=== PATIENT | female | born 1975 | race American Indian/Alaskan Native ===

== ENCOUNTER 2016-10-14 11:26 | Inpatient (IN) | payer MEDICAID ==
[2016-10-14 12:22] VITALS: BMI 15.1
[2016-10-14] MEDS: Artificial Tears Opht Soln OU SCH (23:07)
[2016-10-15] MEDS: Artificial Tears Opht Soln OU SCH ×3 (05:40→17:24)
[2016-10-15] MEDS ORDERED: Lactulose 10 gm/15 ml (Rectal Use) PR SCH (09:00)
--- NOTE | 2016-10-15 21:28 | CP.PCM.PN ---
Subjective - Date & Time of Evaluation Date of Evaluation: 10/15/16 Time of Evaluation: 12:00 - Subjective Subjective: patient with no acute complaints at present Objective - Vital Signs/Intake and Output Vital Signs (last 24 hours): Temp Pulse Resp BP Pulse Ox 97.7 F 81 20 92/49 L 100 10/15/16 20:00 10/15/16 20:00 10/15/16 20:00 10/15/16 20:00 10/15/16 20:00 - Medications Medications: Current Medications Acetaminophen (Tylenol 325mg Tab) 650 mg PO Q4H PRN PRN Reason: for pain scale 5-10 Acetazolamide (Diamox 250 Mg Tab) 250 mg PO DAILY [facility] Last Admin: 10/15/16 09:16 Dose: 250 mg Amlodipine Besylate (Norvasc) 10 mg PO DAILY [facility] Artificial Tears (Artificial Tears) 1 drop OU Q6 PRN PRN Reason: Dry eyes Aspirin (Aspirin Chewable) 81 mg PO DAILY [facility] Last Admin: 10/15/16 09:15 Dose: 81 mg Atorvastatin Calcium (Lipitor) 40 mg PO HS [facility] Last Admin: 10/14/16 21:39 Dose: 40 mg Folic Acid (Folic Acid) 1 mg PO DAILY [facility] Last Admin: 10/15/16 09:16 Dose: 1 mg Lactulose (Enulose) 10 gm PO DAILY PRN PRN Reason: Constipation Lisinopril (Zestril) 5 mg PO DAILY [facility] Metoprolol Tartrate (Lopressor) 25 mg PO Q12 [facility] Sennosides (Senokot Tab) 8.6 mg PO DAILY [facility] Last Admin: 10/15/16 09:16 Dose: Not Given Thiamine HCl (Vitamin B1 Tab) 100 mg PO DAILY [facility] Last Admin: 10/15/16 09:17 Dose: 100 mg - Head Exam Head Exam: NORMAL INSPECTION, NORMOCEPHALIC Additional comments: status post hydrocephalus , EVD placement - Eye Exam Eye Exam: EOMI, Normal appearance Pupil Exam: NORMAL ACCOMODATION, PERRL - ENT Exam ENT Exam: Mucous Membranes Moist - Neck Exam Neck Exam: Normal Inspection - Respiratory Exam Respiratory Exam: Clear to Ausculation Bilateral, NORMAL BREATHING PATTERN - Cardiovascular Exam Cardiovascular Exam: REGULAR RHYTHM - Rectal Exam Rectal Exam: NORMAL INSPECTION - Exam Speculum exam: NORMAL SPECULUM EXAM - Extremities Exam Extremities Exam: Normal Capillary Refill, Normal Inspection - Back Exam Back Exam: NORMAL INSPECTION - Neurological Exam Neuro motor strength exam: Left Upper Extremity: 3, Right Upper Extremity: 4, Left Lower Extremity: 3, Right Lower Extremity: 4 - Psychiatric Exam Psychiatric exam: Normal Affect, Normal Mood Assessment and Plan (1) Brain mass Status: Acute (2) Hydrocephalus Status: Acute (3) Gait abnormality Status: Acute (4) CVA (cerebral vascular accident) Status: Acute - Assessment and Plan (Free Text) Assessment: plan for physical, occupational a, therapy and rec and speech therapy program covering for Dr Lowery Physiatry Overall Plan of Care - Overall Plan of Care Estimated Length of Stay in Weeks: 3 Rehab Impairment: Mobility, Gait, Cognition, Balance, Coordination Etiologic Diagnosis: Cerebrovascular Accident, Other Rehab/Medical Prognosis: Fair - Anticipated Interventions Occupational Therapy:: Yes Speech Therapy:: Yes Recreational Therapy:: Yes Other Anticipated Intervention:: Yes - Therapy Goals Bed Mobility: Independent Ambulation: Supervision Functional Positional Changes:: Independent - Discharge Plan Identification of Barriers to Discharge: Home Situation Discharge Destination: Home
--- NOTE | 2016-10-15 21:39 | CP.PCM.CON ---
History of Present Illness - History of Present Illness History of Present Illness: patient is a young 41 year old black female admitted for acute rehab. 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 - HEMATOLOGICAL/ONCOLOGICAL Hx AIDS: No Hx Human Immunodeficiency Virus (HIV): No - MUSCULOSKELETAL/RHEUMATOLOGICAL Hx Falls: Yes () - PSYCHIATRIC Hx Substance Use: No - ANESTHESIA Hx Anesthesia: Yes Hx Anesthesia Reactions: No Has any member of the family had a problem w/ anesthesia?: No Meds Allergies/Adverse Reactions: Allergies Allergy/AdvReac Type Severity Reaction Status Date / Time No Known Allergies Allergy Verified 10/14/16 12:17 - Medications Medications: Current Medications Acetaminophen (Tylenol 325mg Tab) 650 mg PO Q4H PRN PRN Reason: for pain scale 5-10 Acetazolamide (Diamox 250 Mg Tab) 250 mg PO DAILY [facility] Last Admin: 10/15/16 09:16 Dose: 250 mg Amlodipine Besylate (Norvasc) 10 mg PO DAILY [facility] Artificial Tears (Artificial Tears) 1 drop OU Q6 PRN PRN Reason: Dry eyes Aspirin (Aspirin Chewable) 81 mg PO DAILY [facility] Last Admin: 10/15/16 09:15 Dose: 81 mg Atorvastatin Calcium (Lipitor) 40 mg PO HS [facility] Last Admin: 10/14/16 21:39 Dose: 40 mg Folic Acid (Folic Acid) 1 mg PO DAILY [facility] Last Admin: 10/15/16 09:16 Dose: 1 mg Lactulose (Enulose) 10 gm PO DAILY PRN PRN Reason: Constipation Lisinopril (Zestril) 5 mg PO DAILY [facility] Metoprolol Tartrate (Lopressor) 25 mg PO Q12 [facility] Sennosides (Senokot Tab) 8.6 mg PO DAILY [facility] Last Admin: 10/15/16 09:16 Dose: Not Given Thiamine HCl (Vitamin B1 Tab) 100 mg PO DAILY [facility] Last Admin: 10/15/16 09:17 Dose: 100 mg Physical Exam - Head Exam Head Exam: ATRAUMATIC, NORMAL INSPECTION, NORMOCEPHALIC Additional comments: status post EVD placement - Eye Exam Eye Exam: EOMI, Normal appearance - ENT Exam ENT Exam: Mucous Membranes Moist, Normal Exam - Neck Exam Neck exam: Positive for: Normal Inspection - Respiratory Exam Respiratory Exam: Clear to Auscultation Bilateral, NORMAL BREATHING PATTERN - Cardiovascular Exam Cardiovascular Exam: REGULAR RHYTHM - GI/Abdominal Exam GI & Abdominal Exam: Normal Bowel Sounds - Rectal Exam Rectal Exam: NORMAL INSPECTION - Exam External exam: NORMAL EXTERNAL EXAM - Neurological Exam Neurological exam: Alert Additional comments: left side is weaker than right side - Psychiatric Exam Psychiatric exam: Normal Affect - Skin Skin Exam: Dry, Normal Color Results - Vital Signs Recent Vital Signs: Last Vital Signs Temp 97.7 F 10/15/16 20:00 Pulse 81 10/15/16 20:00 Resp 20 10/15/16 20:00 BP 92/49 L 10/15/16 20:00 Pulse Ox 100 10/15/16 20:00 Assessment & Plan (1) Brain mass Assessment and Plan: plan for physical, occupational , speech and rec therapy Goals for supervision at present TO write overall plan of care Monitor Vitals, labs and skin , Dr Lowery to return on sunday medical treatment as per PMD Status: Acute (2) Hydrocephalus Status: Acute (3) Gait abnormality Status: Acute (4) CVA (cerebral vascular accident) Status: Acute
--- NOTE | 2016-10-15 23:43 | CP.PCM.HP ---
History of Present Illness - History of Present Illness History of Present Illness: CC: Acute Rehab for Acute CVA, and S/P Brain Surgery History of present Illness: A 41yoF who had EVD, and Posterior Fossa Cystic mass removal after Obstructive Hydrocephalus which was complicated with Visual changes prior and after the procedure, and Acute Right PICA territory Infarction with Left Hemiparesis. Transferred here for Acute CVA. On and Off [facility]. Denies any fever/Nausea or Vomiting. Unsteady Ataxic gait witnessed by the RN. Present on Admission - Present on Admission Any Indicators Present on Admission: No Review of Systems - Review of Systems All systems: reviewed and no additional remarkable complaints except Past Patient History - Past Medical History & Family History Past Medical History?: Yes - Past Social History Smoking Status: Current Some Days Smoker Alcohol: None Drugs: Denies - NEUROLOGICAL HX Cerebrovascular Accident: Yes Other/Comment: obstructive hydrocephalus. 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 - HEMATOLOGICAL/ONCOLOGICAL Hx AIDS: No Hx Human Immunodeficiency Virus (HIV): No - MUSCULOSKELETAL/RHEUMATOLOGICAL Hx Falls: Yes () - PSYCHIATRIC Hx Substance Use: No - ANESTHESIA Hx Anesthesia: Yes Hx Anesthesia Reactions: No Has any member of the family had a problem w/ anesthesia?: No Meds Allergies/Adverse Reactions: Allergies Allergy/AdvReac Type Severity Reaction Status Date / Time No Known Allergies Allergy Verified 10/14/16 12:17 Physical Exam - Constitutional Appears: Well, In Acute Distress - Head Exam Head Exam: ATRAUMATIC Additional comments: +Healing Surgical scar with no sign of infection. - Eye Exam Eye Exam: EOMI, Normal appearance, PERRL Pupil Exam: NORMAL ACCOMODATION, PERRL - ENT Exam ENT Exam: Mucous Membranes Moist, Normal Exam - Neck Exam Neck exam: Positive for: Normal Inspection - Respiratory Exam Respiratory Exam: Clear to Auscultation Bilateral, NORMAL BREATHING PATTERN - Cardiovascular Exam Cardiovascular Exam: REGULAR RHYTHM, +S1, +S2 - GI/Abdominal Exam GI & Abdominal Exam: Normal Bowel Sounds, Soft. absent: Tenderness - Rectal Exam Rectal Exam: NORMAL INSPECTION - Exam Exam: Circumcision, NORMAL INSPECTION External exam: NORMAL EXTERNAL EXAM Speculum exam: NORMAL SPECULUM EXAM Bimanual exam: NORMAL BIMANUAL EXAM - Extremities Exam Extremities exam: Positive for: normal inspection - Back Exam Back exam: NORMAL INSPECTION - Neurological Exam Neurological exam: Alert, CN II-XII Intact, Normal Gait, Oriented x3, Reflexes Normal - Psychiatric Exam Psychiatric exam: Normal Affect, Normal Mood - Skin Skin Exam: Dry, Intact, Normal Color, Warm Results - Vital Signs Recent Vital Signs: Last Vital Signs Temp 97.7 F 10/15/16 20:00 Pulse 87 10/15/16 21:38 Resp 20 10/15/16 20:00 BP 91/48 L 10/15/16 21:38 Pulse Ox 100 10/15/16 20:00 - Labs Result Diagrams: 10/16/16 06:00 10/16/16 06:00 Assessment & Plan (1) Brain mass Assessment and Plan: Obstructing Hydrocephalus S/P EVD and Mass resection Visual Change Continue Wound Care PT/OT Status: Acute (2) CVA (cerebral vascular accident) Assessment and Plan: Left Hemiparesis Continue ASA/Atorvastatin Status: Acute (3) Gait abnormality Assessment and Plan: Continue PT/OT Status: Acute (4) Hydrocephalus Assessment and Plan: S/P EVD, and Mass Resection Continue PT/OT Status: Acute
[2016-10-16 06:45] LABS: BASO % 0.4 % (0.0-2.0); EOS # 0.1 K/uL (0.0-0.7); EOS % 1.6 % (0.0-4.0); HEMOGLOBIN 10.7 g/dL (12.0-16.0); LYMPH # 2.1 K/uL (1.0-4.3); LYMPH % 32.2 % (20.0-40.0); MEAN CELL VOLUME 91.4 fl (81.0-99.0); MEAN CORPUSCULAR HEMOGLOBIN 29.9 pg (27.0-31.0); MEAN CORPUSCULAR HGB CONC 32.7 g/dL (33.0-37.0); MEAN PLATELET VOLUME 7.8 fl (7.2-11.7); MONO # 0.4 K/uL (0.0-0.8); MONO % 6.5 % (0.0-10.0); NEUT # 3.8 K/uL (1.8-7.0); NEUT % 59.3 % (50.0-75.0); RBC 3.59 Mil/uL (3.80-5.20); RED CELL DISTRIBUTION WIDTH 13.9 % (11.5-14.5); WHITE BLOOD COUNT 6.4 K/uL (4.8-10.8)
[2016-10-16 06:54] LABS: ALBUMIN 3.5 g/dL (3.5-5.0); ALT/SGPT 36 U/L (9-52); AST/SGOT 30 U/L (14-36); BLOOD UREA NITROGEN 14 mg/dl (7-17); CALCIUM 9.6 mg/dL (8.4-10.2); GFR AFRICAN-AMERICAN > 60; GFR NON-AFRICAN AMERICAN > 60
[2016-10-16 07:04] LABS: PARTIAL THROMBOPLASTIN TIME 27.9 Seconds (25.6-37.1)
--- NOTE | 2016-10-16 08:43 | CT ---
PROCEDURE: CT HEAD WITHOUT CONTRAST. HISTORY: Severe headache COMPARISON: None available. TECHNIQUE: Axial computed tomography images were obtained through the head/brain without intravenous contrast. Radiation dose: Total exam DLP = 865 mGy-cm. This CT exam was performed using one or more of the following dose reduction techniques: Automated exposure control, adjustment of the mA and/or kV according to patient size, and/or use of iterative reconstruction technique. FINDINGS: HEMORRHAGE: No definite acute intracranial hemorrhage identified. BRAIN: The patient is status post right frontal fernando hole as well as bilateral suboccipital craniotomy. Postoperative change identified in both the fernando hole and craniotomy sites with fluid and trace gas identified in the region of the vermis and a bit of fluid is also seen with local edema at the medial right cerebellum. There is minimal edema identified at the left cerebellar peduncle and medial left cerebellum as well. Trace fluid is seen the acceptable scalp posteriorly as well as gas. Limited cerebellar edema is seen exerting mass effect at the posterior margins of the brainstem minimally with the brainstem unremarkable in density throughout. The 4th ventricle appears effaced however there is only borderline hydrocephalus. Lucency is seen within the right frontal lobe aligned with the right frontal fernando hole which is presumed postoperative. VENTRICLES: Borderline hydrocephalus. Effacement of the 4th ventricle. CALVARIUM: As discussed above. PARANASAL SINUSES: Unremarkable as visualized. No significant inflammatory changes. MASTOID AIR CELLS: Unremarkable as visualized. No inflammatory changes. OTHER FINDINGS: None. IMPRESSION: 1. Status post bilateral suboccipital craniotomy with postoperative change identified at the medial bilateral cerebellar hemispheres including the vermis. Trace residual pneumocephaly is identified. No acute intracranial hemorrhage is identified this time. Presumed postoperative mass effect effaces the 4th ventricle with borderline hydrocephalus identified. No prior comparison available. Continued clinical and cross-sectional imaging follow-up is advised. 2. Prior right frontal fernando hole with postop change right frontal lobe. Concur with V rad preliminary report by Dr. Sundeep Samson.
--- NOTE | 2016-10-16 16:34 | CP.PCM.PN ---
Subjective - Date & Time of Evaluation Date of Evaluation: 10/16/16 Time of Evaluation: 16:30 - Subjective Subjective: Seen and examined at the bed side. Fell trying to come out of her bed. Denies hitting her head. Denies Nausea or vomiting. Objective - Vital Signs/Intake and Output Vital Signs (last 24 hours): Temp Pulse Resp BP Pulse Ox 98.6 F 119 H 20 130/80 100 10/16/16 07:41 10/16/16 11:14 10/16/16 07:41 10/16/16 11:14 10/16/16 07:41 - Medications Medications: Current Medications Acetaminophen (Tylenol 325mg Tab) 650 mg PO Q4H PRN PRN Reason: for pain scale 5-10 Last Admin: 10/16/16 15:23 Dose: 650 mg Acetazolamide (Diamox 250 Mg Tab) 250 mg PO DAILY [facility] Last Admin: 10/16/16 08:29 Dose: 250 mg Amlodipine Besylate (Norvasc) 10 mg PO DAILY [facility] Last Admin: 10/16/16 08:30 Dose: Not Given Artificial Tears (Artificial Tears) 1 drop OU Q6 PRN PRN Reason: Dry eyes Aspirin (Aspirin Chewable) 81 mg PO DAILY [facility] Last Admin: 10/16/16 08:29 Dose: 81 mg Atorvastatin Calcium (Lipitor) 40 mg PO HS [facility] Last Admin: 10/15/16 21:38 Dose: 40 mg Folic Acid (Folic Acid) 1 mg PO DAILY [facility] Last Admin: 10/16/16 08:30 Dose: 1 mg Lactulose (Enulose) 10 gm PO DAILY PRN PRN Reason: Constipation Lisinopril (Zestril) 5 mg PO DAILY [facility] Last Admin: 10/16/16 08:31 Dose: Not Given Metoprolol Tartrate (Lopressor) 25 mg PO Q12 [facility] Last Admin: 10/16/16 11:14 Dose: 25 mg Sennosides (Senokot Tab) 8.6 mg PO DAILY [facility] Last Admin: 10/16/16 08:30 Dose: Not Given Thiamine HCl (Vitamin B1 Tab) 100 mg PO DAILY [facility] Last Admin: 10/16/16 08:30 Dose: 100 mg - Labs Labs: 10/16/16 06:00 10/16/16 06:00 PT 12.0 Seconds (9.8-13.1) 10/16/16 06:00 INR 1.0 (0.9-1.2) 10/16/16 06:00 APTT 27.9 Seconds (25.6-37.1) 10/16/16 06:00 - Constitutional Appears: No Acute Distress - Head Exam Additional comments: Surgical site clean. - Eye Exam Eye Exam: Normal appearance, PERRL Pupil Exam: NORMAL ACCOMODATION, PERRL - ENT Exam ENT Exam: Mucous Membranes Moist, Normal Exam - Neck Exam Neck Exam: Full ROM, Normal Inspection. absent: Lymphadenopathy - Respiratory Exam Respiratory Exam: Clear to Ausculation Bilateral, NORMAL BREATHING PATTERN. absent: Rales, Wheezes - Cardiovascular Exam Cardiovascular Exam: REGULAR RHYTHM, +S1, +S2. absent: Murmur - GI/Abdominal Exam GI & Abdominal Exam: Soft, Normal Bowel Sounds. absent: Tenderness - Extremities Exam Extremities Exam: Full ROM, Normal Capillary Refill, Normal Inspection. absent : Joint Swelling, Pedal Edema - Back Exam Back Exam: NORMAL INSPECTION - Neurological Exam Neurological Exam: Alert, Awake, CN II-XII Intact, Normal Gait, Oriented x3 Neuro motor strength exam: Left Upper Extremity: 4, Right Upper Extremity: 5, Left Lower Extremity: 4, Right Lower Extremity: 5 - Psychiatric Exam Psychiatric exam: Normal Affect, Normal Mood - Skin Skin Exam: Dry, Intact, Normal Color, Warm - Additional Findings Additional findings: CT Head W/O Contrast (02/15/2017): IMPRESSION: 1. Status post bilateral suboccipital craniotomy with postoperative change identified at the medial bilateral cerebellar hemispheres including the vermis. Trace residual pneumocephaly is identified. No acute intracranial hemorrhage is identified this time. Presumed postoperative mass effect effaces the 4th ventricle with borderline hydrocephalus identified. No prior comparison available. Continued clinical and cross-sectional imaging follow-up is advised. 2. Prior right frontal fernando hole with postop change right frontal lobe. Assessment and Plan (1) Brain mass Assessment & Plan: Obstructing Hydrocephalus S/P EVD and Mass resection Visual Change Continue Wound Care PT/OT Status: Acute (2) CVA (cerebral vascular accident) Assessment and Plan: Left Hemiparesis Continue ASA/Atorvastatin Status: Acute (3) Gait abnormality Assessment and Plan: Continue PT/OT Status: Acute (4) Hydrocephalus, S/P EVD, and Mass Resection Continue PT/OT (5) Fall Precaution two Bed Alarms Status: Acute
--- NOTE | 2016-10-16 17:07 | CP.PCM.PN ---
Subjective - Date & Time of Evaluation Date of Evaluation: 10/16/16 Time of Evaluation: 17:06 - Subjective Subjective: patient seen in the room had obstructive hydrocephalus, posterior fossa mass s/p craniotomy and shunt placement has visual disturbances and left sided weakness could not test visual solis as she couldn't focus long enough to do that mild left HP full AROM Objective - Vital Signs/Intake and Output Vital Signs (last 24 hours): Temp Pulse Resp BP Pulse Ox 98.6 F 119 H 20 130/80 100 10/16/16 07:41 10/16/16 11:14 10/16/16 07:41 10/16/16 11:14 10/16/16 07:41 - Medications Medications: Current Medications Acetaminophen (Tylenol 325mg Tab) 650 mg PO Q4H PRN PRN Reason: for pain scale 5-10 Last Admin: 10/16/16 15:23 Dose: 650 mg Acetazolamide (Diamox 250 Mg Tab) 250 mg PO DAILY [facility] Last Admin: 10/16/16 08:29 Dose: 250 mg Amlodipine Besylate (Norvasc) 10 mg PO DAILY [facility] Last Admin: 10/16/16 08:30 Dose: Not Given Artificial Tears (Artificial Tears) 1 drop OU Q6 PRN PRN Reason: Dry eyes Aspirin (Aspirin Chewable) 81 mg PO DAILY [facility] Last Admin: 10/16/16 08:29 Dose: 81 mg Atorvastatin Calcium (Lipitor) 40 mg PO HS [facility] Last Admin: 10/15/16 21:38 Dose: 40 mg Folic Acid (Folic Acid) 1 mg PO DAILY [facility] Last Admin: 10/16/16 08:30 Dose: 1 mg Lactulose (Enulose) 10 gm PO DAILY PRN PRN Reason: Constipation Lisinopril (Zestril) 5 mg PO DAILY [facility] Last Admin: 10/16/16 08:31 Dose: Not Given Metoprolol Tartrate (Lopressor) 25 mg PO Q12 [facility] Last Admin: 10/16/16 11:14 Dose: 25 mg Sennosides (Senokot Tab) 8.6 mg PO DAILY [facility] Last Admin: 10/16/16 08:30 Dose: Not Given Thiamine HCl (Vitamin B1 Tab) 100 mg PO DAILY [facility] Last Admin: 10/16/16 08:30 Dose: 100 mg - Labs Labs: 10/16/16 06:00 10/16/16 06:00 PT 12.0 Seconds (9.8-13.1) 10/16/16 06:00 INR 1.0 (0.9-1.2) 10/16/16 06:00 APTT 27.9 Seconds (25.6-37.1) 10/16/16 06:00
[2016-10-17] MEDS: Artificial Tears Opht Soln OU PRN (08:28)
--- NOTE | 2016-10-17 13:12 | PSY.TMCNF ---
Nursing - Vital Signs Vital Signs (Last 8 hours): Vital Signs 10/17/16 10/17/16 10/17/16 08:28 08:29 09:00 Temperature 98.4 F Pulse Rate 89 89 89 Respiratory 18 Rate Blood Pressure 99/58 L 99/58 L 99/58 L O2 Sat by Pulse Oximetry 10/17/16 10:00 Temperature 98.1 F Pulse Rate 88 Respiratory 20 Rate Blood Pressure 99/58 L O2 Sat by Pulse 100 Oximetry Pain: 0 - Precautions: Precautions: Fall Prevention - Medications/Other Issues Comment: Safety, pain management - Consults Comment: Dr. oLwery - Skin Incision Site: Frontal and posterior head Dressing Status: Clean, Dry, Intact Incision: Sutures Intact, Open Incision Line Treatment: [employer] [facility] - Toileting Toileting: Moderate Assistance - Bladder Management Bladder Pattern: Normal Voiding Method: Toilet Bladder Management: Moderate Assistance - Bowel Management Bowel Pattern: Normal Bowel Management: Moderate Assistance - Transfers Transfers: Contact Guard - ADL's ADL's: Contact Guard - Pain Management Comments: Tylenol 650mg po Q4hr prn - Patient/Family Teaching Comments: Safety. Fall preaution - Goals/Time Frame Comments: As per IPOC Physical Therapy - Bed Mobility Bed Mobility: Supervision, Verbal Cues - Transfers Wheelchair to Mat: Verbal Cues, Minimal Assistance Sit to Stand: Supervision, Verbal Cues, Contact Guard, Minimal Assistance Comment: RW - Ambulation Level of Assistance: Minimal Assistance, Moderate Assistance Distance (ft.): 15 Assistive Devices: Rolling Walker Orthoses: n/a Comment: -deferred on Sunday10/16/16 due to low BP and reports of dizziness. - assessed on 10/14 on evaluation. -min/mod A with RW, ataxic gait with impaired L sided strength and coordination - Stair Negotiation Stairs: Level of Assistance: Not Tested - Standing Balance Static Stand: Contact Guard Assist Dynamic Stand: Minimal Assistance, Moderate Assistance - Pain Management Techniques: Medication - Insight/Carryover Insight/Carryover: Fair - Patient/Family Education Comment: safety, balance, ADls and functional mobility, POC, therapy schedule, therapy goals, use of call rodríguez, safety - Assessment/Plan Assessment: Pt is a 41 year old female who was admitted with posterior fossa cyst, underwent extraction. Pt with decline in independence with ADLs, IADLs, and functional mobility secondary to impaired balance, LUE strength, coordination, visual changes and impaired cognitive functioning. Recommend continued OT services to maximize independence with ADLs and functional mobility - Goals Timeframe: 2 weeks Goals: MOD I ADLs. MOD I ADL transfers. MOD I IADLs - Provider License Number: [id number] Occupational Therapy - Arousal/Attention/Orientation Level of Consciousness: Awake Patient Orientation: Person, Place, Time, Appropriate to Age, Appropriate to Situation - ADL/IADL Self Feeding: Set-up Help Grooming: Supervision, Verbal Cues, Set-up Help Dressing-Upper Extremity: Supervision, Verbal Cues, Set-up Help Dressing-Lower Extremity: Minimal Assistance - Sitting Balance Static Sitting: Supervision Dynamic Sitting: Contact Guard Assist - Transfers Wheelchair to Bed Transfers: Minimal Assistance Toilet Transfers: Minimal Assistance - Pain Alleviating Techniques: Medication - Insight/Carryover Insight/Carryover: Fair - Patient/Family Education Comment: safety, balance, ADls and functional mobility, POC, therapy schedule, therapy goals, use of call rodríguez, safety - Assessment/Plan Assessment: Pt is a 41 year old female who was admitted with posterior fossa cyst, underwent extraction. Pt with decline in independence with ADLs, IADLs, and functional mobility secondary to impaired balance, LUE strength, coordination, visual changes and impaired cognitive functioning. Recommend continued OT services to maximize independence with ADLs and functional mobility - Goals Timeframe: 2 weeks Goals: MOD I ADLs. MOD I ADL transfers. MOD I IADLs - Provider Therapist: Awilda Covington License Number: [id number] Speech Therapy - Consult Information Patient on Program: Yes Medical Diagnosis: obstructive hydrocephalus, CVA Treatment Diagnosis: cognitive deficits - Assessment Problem Solving Impairment: Mild Memory Impairment: Mild - Plan Assessment: Pt is a 41 year old female who was admitted with posterior fossa cyst, underwent extraction. Pt with decline in independence with ADLs, IADLs, and functional mobility secondary to impaired balance, LUE strength, coordination, visual changes and impaired cognitive functioning. Recommend continued OT services to maximize independence with ADLs and functional mobility - Provider Therapist: Mary Ludwig License Number: [id number] Recreational Therapy - Participation Participation: Monitors His/Her Own Leisure Time - Attendance Attendance: 3-5 times per week - Activities Leisure Activities: Reading - Socialization Level of Socialization: Initiates/interacts with caregivers but not with peer - Assessment Assessment/Plan: Pt is a 41 year old female who was admitted with posterior fossa cyst, underwent extraction. Pt with decline in independence with ADLs, IADLs, and functional mobility secondary to impaired balance, LUE strength, coordination, visual changes and impaired cognitive functioning. Recommend continued OT services to maximize independence with ADLs and functional mobility - Provider Therapist: Malathi Alva, [employer] #[id number] Nutrition - Current Diet Current Diet/ Supplement/ Feedings: 2 gram Na low fat/low cholesterol - Appetite Percent Meal Consumed: 50-74% - Comments Comments: Safety. Fall preaution - Assessment/Goals/Time Frame Assessment/Goals/Time Frame: Safety, pain management - Provider Provider: Fabi Márquez RD Case Management - Discharge Plan Discharge Plan: Home with significant other/family Rehabilitation Plan - Treatment Plan Treatment Plan: Physical Therapy, Occupational Therapy, Speech, Dietary, Wound Care, Patient/Family Education - Discharge Plan Estimated Date of Discharge: 11/01/16 Discharge to: Home
--- NOTE | 2016-10-17 13:44 | CP.PCM.PN ---
Subjective - Date & Time of Evaluation Date of Evaluation: 10/17/16 Time of Evaluation: 13:44 - Subjective Subjective: Patient seen in room more comfortable today denies pain discussed importance for safety as she got OOB yesterday and had a near fall she understood continue current care Objective - Vital Signs/Intake and Output Vital Signs (last 24 hours): Temp Pulse Resp BP Pulse Ox 98.1 F 88 20 99/58 L 100 10/17/16 10:00 10/17/16 10:00 10/17/16 10:00 10/17/16 10:00 10/17/16 10:00 - Medications Medications: Current Medications Acetaminophen (Tylenol 325mg Tab) 650 mg PO Q4H PRN PRN Reason: for pain scale 5-10 Last Admin: 10/17/16 08:26 Dose: 650 mg Acetazolamide (Diamox 250 Mg Tab) 250 mg PO DAILY [facility] Last Admin: 10/17/16 08:28 Dose: 250 mg Amlodipine Besylate (Norvasc) 10 mg PO DAILY [facility] Last Admin: 10/17/16 08:29 Dose: Not Given Artificial Tears (Artificial Tears) 1 drop OU Q6 PRN PRN Reason: Dry eyes Last Admin: 10/17/16 08:28 Dose: 1 drop Aspirin (Aspirin Chewable) 81 mg PO DAILY [facility] Last Admin: 10/17/16 08:28 Dose: 81 mg Atorvastatin Calcium (Lipitor) 40 mg PO HS [facility] Last Admin: 10/16/16 21:09 Dose: 40 mg Folic Acid (Folic Acid) 1 mg PO DAILY [facility] Last Admin: 10/17/16 08:28 Dose: 1 mg Lactulose (Enulose) 10 gm PO DAILY PRN PRN Reason: Constipation Lisinopril (Zestril) 5 mg PO DAILY [facility] Last Admin: 10/17/16 08:29 Dose: Not Given Metoprolol Tartrate (Lopressor) 25 mg PO Q12 [facility] Last Admin: 10/17/16 08:28 Dose: Not Given Sennosides (Senokot Tab) 8.6 mg PO DAILY [facility] Last Admin: 10/17/16 08:29 Dose: Not Given Thiamine HCl (Vitamin B1 Tab) 100 mg PO DAILY [facility] Last Admin: 10/17/16 08:29 Dose: 100 mg - Labs Labs: 10/16/16 06:00 10/16/16 06:00 PT 12.0 Seconds (9.8-13.1) 10/16/16 06:00 INR 1.0 (0.9-1.2) 10/16/16 06:00 APTT 27.9 Seconds (25.6-37.1) 10/16/16 06:00
--- NOTE | 2016-10-17 17:33 | CP.PCM.PN ---
Subjective - Date & Time of Evaluation Date of Evaluation: 10/17/16 Time of Evaluation: 17:05 - Subjective Subjective: Seen and examined at the bed side. No complaint today Objective - Vital Signs/Intake and Output Vital Signs (last 24 hours): Temp Pulse Resp BP Pulse Ox 98.1 F 101 H 20 120/77 100 10/17/16 10:00 10/17/16 14:53 10/17/16 10:00 10/17/16 14:10 10/17/16 10:00 - Medications Medications: Current Medications Acetaminophen (Tylenol 325mg Tab) 650 mg PO Q4H PRN PRN Reason: for pain scale 5-10 Last Admin: 10/17/16 08:26 Dose: 650 mg Acetazolamide (Diamox 250 Mg Tab) 250 mg PO DAILY [facility] Last Admin: 10/17/16 08:28 Dose: 250 mg Amlodipine Besylate (Norvasc) 10 mg PO DAILY [facility] Last Admin: 10/17/16 08:29 Dose: Not Given Artificial Tears (Artificial Tears) 1 drop OU Q6 PRN PRN Reason: Dry eyes Last Admin: 10/17/16 08:28 Dose: 1 drop Aspirin (Aspirin Chewable) 81 mg PO DAILY [facility] Last Admin: 10/17/16 08:28 Dose: 81 mg Atorvastatin Calcium (Lipitor) 40 mg PO HS [facility] Last Admin: 10/16/16 21:09 Dose: 40 mg Folic Acid (Folic Acid) 1 mg PO DAILY [facility] Last Admin: 10/17/16 08:28 Dose: 1 mg Lactulose (Enulose) 10 gm PO DAILY PRN PRN Reason: Constipation Lisinopril (Zestril) 5 mg PO DAILY [facility] Last Admin: 10/17/16 08:29 Dose: Not Given Metoprolol Tartrate (Lopressor) 25 mg PO Q12 [facility] Last Admin: 10/17/16 08:28 Dose: Not Given Sennosides (Senokot Tab) 8.6 mg PO DAILY [facility] Last Admin: 10/17/16 08:29 Dose: Not Given Thiamine HCl (Vitamin B1 Tab) 100 mg PO DAILY [facility] Last Admin: 10/17/16 08:29 Dose: 100 mg - Labs Labs: 10/16/16 06:00 10/16/16 06:00 PT 12.0 Seconds (9.8-13.1) 10/16/16 06:00 INR 1.0 (0.9-1.2) 10/16/16 06:00 APTT 27.9 Seconds (25.6-37.1) 10/16/16 06:00 - Constitutional Appears: Well, No Acute Distress - Head Exam Additional comments: Surgical wound care healing well. - Eye Exam Eye Exam: EOMI, Normal appearance, PERRL Pupil Exam: NORMAL ACCOMODATION, PERRL - ENT Exam ENT Exam: Mucous Membranes Moist, Normal Exam - Neck Exam Neck Exam: Full ROM, Normal Inspection. absent: Lymphadenopathy - Respiratory Exam Respiratory Exam: Clear to Ausculation Bilateral, NORMAL BREATHING PATTERN - Cardiovascular Exam Cardiovascular Exam: REGULAR RHYTHM, +S1, +S2. absent: Murmur - GI/Abdominal Exam GI & Abdominal Exam: Soft, Normal Bowel Sounds. absent: Tenderness - Extremities Exam Extremities Exam: Full ROM, Normal Capillary Refill, Normal Inspection. absent : Joint Swelling, Pedal Edema - Back Exam Back Exam: NORMAL INSPECTION - Neurological Exam Neurological Exam: Abnormal Gait, Awake, Motor Sensory Deficit, Oriented x3 Neuro motor strength exam: Left Upper Extremity: 4, Right Upper Extremity: 5, Left Lower Extremity: 3, Right Lower Extremity: 5 - Psychiatric Exam Psychiatric exam: Normal Affect, Normal Mood - Skin Skin Exam: Dry, Intact, Normal Color, Warm Assessment and Plan (1) Brain mass Assessment & Plan: Obstructing Hydrocephalus S/P EVD and Mass resection Visual Change Continue Wound Care PT/OT Status: Acute (2) CVA (cerebral vascular accident) Assessment and Plan: Left Hemiparesis Continue ASA/Atorvastatin Status: Acute (3) Gait abnormality Assessment and Plan: Continue PT/OT Status: Acute (4) Hydrocephalus, S/P EVD, and Mass Resection Continue PT/OT (5) Fall Two Bed Alarms Fall Precaution Status: Acute
--- NOTE | 2016-10-18 11:24 | CP.PCM.PN ---
Subjective - Date & Time of Evaluation Date of Evaluation: 10/18/16 Time of Evaluation: 11:23 - Subjective Subjective: Patient seen in room feeling good and appreciating therapies blurry vision regardless of which eye is covered continue current care Objective - Vital Signs/Intake and Output Vital Signs (last 24 hours): Temp Pulse Resp BP Pulse Ox 97.9 F 96 H 18 105/68 100 10/18/16 10:00 10/18/16 08:39 10/18/16 10:00 10/18/16 08:39 10/18/16 10:00 - Medications Medications: Current Medications Acetaminophen (Tylenol 325mg Tab) 650 mg PO Q4H PRN PRN Reason: for pain scale 5-10 Last Admin: 10/17/16 17:36 Dose: 650 mg Acetazolamide (Diamox 250 Mg Tab) 250 mg PO DAILY [facility] Last Admin: 10/18/16 08:36 Dose: 250 mg Amlodipine Besylate (Norvasc) 10 mg PO DAILY [facility] Last Admin: 10/18/16 08:38 Dose: 10 mg Artificial Tears (Artificial Tears) 1 drop OU Q6 PRN PRN Reason: Dry eyes Last Admin: 10/17/16 08:28 Dose: 1 drop Aspirin (Aspirin Chewable) 81 mg PO DAILY [facility] Last Admin: 10/18/16 08:35 Dose: 81 mg Atorvastatin Calcium (Lipitor) 40 mg PO HS [facility] Last Admin: 10/17/16 21:10 Dose: 40 mg Folic Acid (Folic Acid) 1 mg PO DAILY [facility] Last Admin: 10/18/16 08:36 Dose: 1 mg Lactulose (Enulose) 10 gm PO DAILY PRN PRN Reason: Constipation Lisinopril (Zestril) 5 mg PO DAILY [facility] Last Admin: 10/18/16 08:39 Dose: Not Given Metoprolol Tartrate (Lopressor) 25 mg PO Q12 [facility] Last Admin: 10/18/16 08:36 Dose: Not Given Sennosides (Senokot Tab) 8.6 mg PO DAILY [facility] Last Admin: 10/18/16 08:38 Dose: Not Given Thiamine HCl (Vitamin B1 Tab) 100 mg PO DAILY [facility] Last Admin: 10/18/16 08:37 Dose: 100 mg - Labs Labs: 10/16/16 06:00 10/16/16 06:00 PT 12.0 Seconds (9.8-13.1) 10/16/16 06:00 INR 1.0 (0.9-1.2) 10/16/16 06:00 APTT 27.9 Seconds (25.6-37.1) 10/16/16 06:00
[2016-10-18] MEDS: Artificial Tears Opht Soln OU PRN (21:09)
[2016-10-19] MEDS: Artificial Tears Opht Soln OU PRN ×2 (11:17→21:19)
--- NOTE | 2016-10-19 14:50 | CP.PCM.PN ---
Subjective - Date & Time of Evaluation Date of Evaluation: 10/19/16 Time of Evaluation: 14:49 - Subjective Subjective: Patient seen in room very happy with progress notes increased strength left UE still with some dizziness and blurred vision at times continue current care Objective - Vital Signs/Intake and Output Vital Signs (last 24 hours): Temp Pulse Resp BP Pulse Ox 96.4 F L 103 H 18 96/57 L 100 10/19/16 07:41 10/19/16 13:16 10/19/16 07:41 10/19/16 08:30 10/19/16 07:41 - Medications Medications: Current Medications Acetaminophen (Tylenol 325mg Tab) 650 mg PO Q4H PRN PRN Reason: for pain scale 5-10 Last Admin: 10/18/16 21:12 Dose: 650 mg Acetazolamide (Diamox 250 Mg Tab) 250 mg PO DAILY [facility] Last Admin: 10/19/16 08:32 Dose: 250 mg Amlodipine Besylate (Norvasc) 10 mg PO DAILY [facility] Last Admin: 10/19/16 08:30 Dose: Not Given Artificial Tears (Artificial Tears) 1 drop OU Q6 PRN PRN Reason: Dry eyes Last Admin: 10/19/16 11:17 Dose: 1 drop Aspirin (Aspirin Chewable) 81 mg PO DAILY [facility] Last Admin: 10/19/16 08:32 Dose: 81 mg Atorvastatin Calcium (Lipitor) 40 mg PO HS [facility] Last Admin: 10/18/16 21:09 Dose: 40 mg Folic Acid (Folic Acid) 1 mg PO DAILY [facility] Last Admin: 10/19/16 08:32 Dose: 1 mg Lactulose (Enulose) 10 gm PO DAILY PRN PRN Reason: Constipation Lisinopril (Zestril) 5 mg PO DAILY [facility] Last Admin: 10/19/16 08:30 Dose: Not Given Metoprolol Tartrate (Lopressor) 25 mg PO Q12 [facility] Last Admin: 10/19/16 08:30 Dose: Not Given Sennosides (Senokot Tab) 8.6 mg PO DAILY [facility] Last Admin: 10/19/16 08:34 Dose: Not Given Thiamine HCl (Vitamin B1 Tab) 100 mg PO DAILY [facility] Last Admin: 10/19/16 08:32 Dose: 100 mg - Labs Labs: 10/16/16 06:00 10/16/16 06:00 PT 12.0 Seconds (9.8-13.1) 10/16/16 06:00 INR 1.0 (0.9-1.2) 10/16/16 06:00 APTT 27.9 Seconds (25.6-37.1) 10/16/16 06:00
--- NOTE | 2016-10-19 23:34 | CP.PCM.PN ---
Subjective - Date & Time of Evaluation Date of Evaluation: 10/19/16 Time of Evaluation: 17:00 - Subjective Subjective: Seen and examined at the bed side. Still C/O Blurry vision but improving. Occasional LOPEZ. Objective - Vital Signs/Intake and Output Vital Signs (last 24 hours): Temp Pulse Resp BP Pulse Ox 96.8 F L 82 19 100/60 99 10/19/16 20:02 10/19/16 20:15 10/19/16 20:02 10/19/16 20:15 10/19/16 20:02 - Medications Medications: Current Medications Acetaminophen (Tylenol 325mg Tab) 650 mg PO Q4H PRN PRN Reason: for pain scale 5-10 Last Admin: 10/19/16 21:18 Dose: 650 mg Acetazolamide (Diamox 250 Mg Tab) 250 mg PO DAILY [facility] Last Admin: 10/19/16 08:32 Dose: 250 mg Amlodipine Besylate (Norvasc) 10 mg PO DAILY [facility] Last Admin: 10/19/16 08:30 Dose: Not Given Artificial Tears (Artificial Tears) 1 drop OU Q6 PRN PRN Reason: Dry eyes Last Admin: 10/19/16 21:19 Dose: 1 drop Aspirin (Aspirin Chewable) 81 mg PO DAILY [facility] Last Admin: 10/19/16 08:32 Dose: 81 mg Atorvastatin Calcium (Lipitor) 40 mg PO HS [facility] Last Admin: 10/19/16 21:19 Dose: 40 mg Folic Acid (Folic Acid) 1 mg PO DAILY [facility] Last Admin: 10/19/16 08:32 Dose: 1 mg Lactulose (Enulose) 10 gm PO DAILY PRN PRN Reason: Constipation Lisinopril (Zestril) 5 mg PO DAILY [facility] Last Admin: 10/19/16 08:30 Dose: Not Given Metoprolol Tartrate (Lopressor) 25 mg PO Q12 [facility] Last Admin: 10/19/16 20:15 Dose: Not Given Sennosides (Senokot Tab) 8.6 mg PO DAILY [facility] Last Admin: 10/19/16 08:34 Dose: Not Given Thiamine HCl (Vitamin B1 Tab) 100 mg PO DAILY [facility] Last Admin: 10/19/16 08:32 Dose: 100 mg - Labs Labs: 10/16/16 06:00 10/16/16 06:00 PT 12.0 Seconds (9.8-13.1) 10/16/16 06:00 INR 1.0 (0.9-1.2) 10/16/16 06:00 APTT 27.9 Seconds (25.6-37.1) 10/16/16 06:00 - Constitutional Appears: Well, No Acute Distress - Head Exam Additional comments: +Scalp Surgical Scar healed. - Eye Exam Eye Exam: Normal appearance, PERRL Pupil Exam: NORMAL ACCOMODATION, PERRL - ENT Exam ENT Exam: Mucous Membranes Moist, Normal Exam - Neck Exam Neck Exam: Full ROM, Normal Inspection. absent: Lymphadenopathy - Respiratory Exam Respiratory Exam: Clear to Ausculation Bilateral, NORMAL BREATHING PATTERN - Cardiovascular Exam Cardiovascular Exam: REGULAR RHYTHM, +S1, +S2. absent: Murmur - GI/Abdominal Exam GI & Abdominal Exam: Soft, Normal Bowel Sounds. absent: Tenderness - Extremities Exam Extremities Exam: Full ROM, Normal Capillary Refill, Normal Inspection. absent : Joint Swelling, Pedal Edema - Back Exam Back Exam: NORMAL INSPECTION - Neurological Exam Neurological Exam: Alert, Awake, CN II-XII Intact, Normal Gait, Oriented x3 Neuro motor strength exam: Left Upper Extremity: 4, Right Upper Extremity: 5, Left Lower Extremity: 4, Right Lower Extremity: 5 - Psychiatric Exam Psychiatric exam: Normal Affect, Normal Mood - Skin Skin Exam: Dry, Intact, Normal Color, Warm Assessment and Plan (1) Brain mass Assessment & Plan: Obstructing Hydrocephalus S/P EVD and Mass resection- Resolved Visual Change- Improving Wound -Healed Status: Acute (2) CVA (cerebral vascular accident) Assessment and Plan: Left Hemiparesis Continue ASA/Atorvastatin Continue Rehab Status: Acute (3) Gait abnormality Assessment and Plan: Continue PT/OT Status: Acute (4) Hydrocephalus, S/P EVD, and Mass Resection Continue PT/OT (5) Fall Two Bed Alarms Fall Precaution Status: Acute
--- NOTE | 2016-10-20 08:03 | CP.PCM.CON ---
History of Present Illness - History of Present Illness History of Present Illness: Pt is a 41 year old female admitted to [facility] (formerly [facility]) and referred to the insurance underwriter for evaluation. Med history postive for "Cyst in my brain" crainiotomy. Social History: pt lives with her mother in a senior building. She also has one son age 5. Pt reported positive relationships with family members. Pt never . 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 She is currently not working. Pt reported a history of alcohol abuse up until one year ago when her son turned 4. She denied drug abuse. Pt spoke of her current medical issues, frustration and dysphoria, she reported decline in negative thinking and ideation. Asking less "Why estrella." MSE: pt alert, oriented, relevant/coherent, no psychosis, affect constricted, mood irritable/dysphoric, strategies reviewed to reduce distress/depression. no si no hi ideation. Dx: Adjustment Dx plan: Continued Sup therapy Past Patient History - Past Medical History & Family History Past Medical History?: Yes - Past Social History Smoking Status: Current Some Days Smoker Alcohol: None Drugs: Denies - NEUROLOGICAL HX Cerebrovascular Accident: Yes Other/Comment: obstructive hydrocephalus. 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 - HEMATOLOGICAL/ONCOLOGICAL Hx AIDS: No Hx Human Immunodeficiency Virus (HIV): No - MUSCULOSKELETAL/RHEUMATOLOGICAL Hx Falls: Yes () - PSYCHIATRIC Hx Substance Use: No - ANESTHESIA Hx Anesthesia: Yes Hx Anesthesia Reactions: No Has any member of the family had a problem w/ anesthesia?: No Meds Allergies/Adverse Reactions: Allergies Allergy/AdvReac Type Severity Reaction Status Date / Time No Known Allergies Allergy Verified 10/14/16 12:17 - Medications Medications: Current Medications Acetaminophen (Tylenol 325mg Tab) 650 mg PO Q4H PRN PRN Reason: for pain scale 5-10 Last Admin: 10/20/16 06:11 Dose: 650 mg Acetazolamide (Diamox 250 Mg Tab) 250 mg PO DAILY [facility] Last Admin: 10/19/16 08:32 Dose: 250 mg Amlodipine Besylate (Norvasc) 10 mg PO DAILY [facility] Last Admin: 10/19/16 08:30 Dose: Not Given Artificial Tears (Artificial Tears) 1 drop OU Q6 PRN PRN Reason: Dry eyes Last Admin: 10/19/16 21:19 Dose: 1 drop Aspirin (Aspirin Chewable) 81 mg PO DAILY [facility] Last Admin: 10/19/16 08:32 Dose: 81 mg Atorvastatin Calcium (Lipitor) 40 mg PO HS [facility] Last Admin: 10/19/16 21:19 Dose: 40 mg Folic Acid (Folic Acid) 1 mg PO DAILY [facility] Last Admin: 10/19/16 08:32 Dose: 1 mg Lactulose (Enulose) 10 gm PO DAILY PRN PRN Reason: Constipation Lisinopril (Zestril) 5 mg PO DAILY [facility] Last Admin: 10/19/16 08:30 Dose: Not Given Metoprolol Tartrate (Lopressor) 25 mg PO Q12 [facility] Last Admin: 10/19/16 20:15 Dose: Not Given Sennosides (Senokot Tab) 8.6 mg PO DAILY [facility] Last Admin: 10/19/16 08:34 Dose: Not Given Thiamine HCl (Vitamin B1 Tab) 100 mg PO DAILY [facility] Last Admin: 10/19/16 08:32 Dose: 100 mg Results - Vital Signs Recent Vital Signs: Last Vital Signs Temp 98.4 F 10/20/16 07:32 Pulse 86 10/20/16 07:32 Resp 20 10/20/16 07:32 BP 106/61 10/20/16 07:32 Pulse Ox 100 10/20/16 07:32 - Labs Result Diagrams: 10/16/16 06:00 10/16/16 06:00
--- NOTE | 2016-10-20 11:45 | CP.PCM.PN ---
Subjective - Date & Time of Evaluation Date of Evaluation: 10/20/16 Time of Evaluation: 11:30 - Subjective Subjective: Seen and examined at the bed side. Sates feeling better. +blurry vision. Objective - Vital Signs/Intake and Output Vital Signs (last 24 hours): Temp Pulse Resp BP Pulse Ox 98.4 F 86 20 106/61 100 10/20/16 07:32 10/20/16 08:09 10/20/16 07:32 10/20/16 08:09 10/20/16 07:32 - Medications Medications: Current Medications Acetaminophen (Tylenol 325mg Tab) 650 mg PO Q4H PRN PRN Reason: for pain scale 5-10 Last Admin: 10/20/16 06:11 Dose: 650 mg Acetazolamide (Diamox 250 Mg Tab) 250 mg PO DAILY [facility] Last Admin: 10/20/16 08:11 Dose: 250 mg Amlodipine Besylate (Norvasc) 10 mg PO DAILY [facility] Last Admin: 10/20/16 08:09 Dose: Not Given Artificial Tears (Artificial Tears) 1 drop OU Q6 PRN PRN Reason: Dry eyes Last Admin: 10/19/16 21:19 Dose: 1 drop Aspirin (Aspirin Chewable) 81 mg PO DAILY [facility] Last Admin: 10/20/16 08:11 Dose: 81 mg Atorvastatin Calcium (Lipitor) 40 mg PO HS [facility] Last Admin: 10/19/16 21:19 Dose: 40 mg Folic Acid (Folic Acid) 1 mg PO DAILY [facility] Last Admin: 10/20/16 08:11 Dose: 1 mg Lactulose (Enulose) 10 gm PO DAILY PRN PRN Reason: Constipation Lisinopril (Zestril) 5 mg PO DAILY [facility] Last Admin: 10/20/16 08:09 Dose: Not Given Metoprolol Tartrate (Lopressor) 25 mg PO Q12 [facility] Last Admin: 10/20/16 08:09 Dose: Not Given Sennosides (Senokot Tab) 8.6 mg PO DAILY [facility] Last Admin: 10/20/16 08:11 Dose: Not Given Thiamine HCl (Vitamin B1 Tab) 100 mg PO DAILY [facility] Last Admin: 10/20/16 08:11 Dose: 100 mg - Labs Labs: 10/16/16 06:00 10/16/16 06:00 PT 12.0 Seconds (9.8-13.1) 10/16/16 06:00 INR 1.0 (0.9-1.2) 10/16/16 06:00 APTT 27.9 Seconds (25.6-37.1) 10/16/16 06:00 - Constitutional Appears: Well, No Acute Distress - Head Exam Head Exam: ATRAUMATIC, NORMAL INSPECTION, NORMOCEPHALIC - Eye Exam Eye Exam: Normal appearance, PERRL Pupil Exam: NORMAL ACCOMODATION, PERRL Additional comments: Decreased Visual Acuity. - ENT Exam ENT Exam: Mucous Membranes Moist, Normal Exam - Neck Exam Neck Exam: Full ROM, Normal Inspection. absent: Lymphadenopathy - Respiratory Exam Respiratory Exam: Clear to Ausculation Bilateral, NORMAL BREATHING PATTERN - Cardiovascular Exam Cardiovascular Exam: REGULAR RHYTHM, +S1, +S2. absent: Murmur - GI/Abdominal Exam GI & Abdominal Exam: Soft, Normal Bowel Sounds. absent: Tenderness - Extremities Exam Extremities Exam: Full ROM, Normal Capillary Refill, Normal Inspection. absent : Joint Swelling, Pedal Edema - Back Exam Back Exam: NORMAL INSPECTION. absent: CVA tenderness (L), CVA tenderness (R) - Neurological Exam Neurological Exam: Abnormal Gait, Normal Gait Neuro motor strength exam: Left Upper Extremity: 5, Left Lower Extremity: 4, Right Lower Extremity: 5 - Psychiatric Exam Psychiatric exam: Normal Affect, Normal Mood - Skin Skin Exam: Dry, Intact, Normal Color, Warm Assessment and Plan (1) Brain mass Assessment & Plan: Obstructing Hydrocephalus S/P EVD and Mass resection- Resolved Visual Change- Improving Wound -Healed Status: Acute (2) CVA (cerebral vascular accident) Assessment and Plan: Left Hemiparesis Continue ASA/Atorvastatin Continue Rehab Status: Acute (3) Gait abnormality Assessment and Plan: Improving Continue PT/OT Status: Acute (4) Hydrocephalus, S/P EVD, and Mass Resection Continue PT/OT (5) Fall Two Bed Alarms Fall Precaution Status: Acute
--- NOTE | 2016-10-20 16:05 | CP.PCM.PN ---
Subjective - Date & Time of Evaluation Date of Evaluation: 10/20/16 Time of Evaluation: 16:03 - Subjective Subjective: Patient seen in room +nystagmus some blurring of vision tracking better though ambulating 100' no pain continue current care Objective - Vital Signs/Intake and Output Vital Signs (last 24 hours): Temp Pulse Resp BP Pulse Ox 98.4 F 86 20 106/61 100 10/20/16 07:32 10/20/16 08:09 10/20/16 07:32 10/20/16 08:09 10/20/16 07:32 - Medications Medications: Current Medications Acetaminophen (Tylenol 325mg Tab) 650 mg PO Q4H PRN PRN Reason: for pain scale 5-10 Last Admin: 10/20/16 06:11 Dose: 650 mg Acetazolamide (Diamox 250 Mg Tab) 250 mg PO DAILY [facility] Last Admin: 10/20/16 08:11 Dose: 250 mg Amlodipine Besylate (Norvasc) 10 mg PO DAILY [facility] Last Admin: 10/20/16 08:09 Dose: Not Given Artificial Tears (Artificial Tears) 1 drop OU Q6 PRN PRN Reason: Dry eyes Last Admin: 10/19/16 21:19 Dose: 1 drop Aspirin (Aspirin Chewable) 81 mg PO DAILY [facility] Last Admin: 10/20/16 08:11 Dose: 81 mg Atorvastatin Calcium (Lipitor) 40 mg PO HS [facility] Last Admin: 10/19/16 21:19 Dose: 40 mg Folic Acid (Folic Acid) 1 mg PO DAILY [facility] Last Admin: 10/20/16 08:11 Dose: 1 mg Lactulose (Enulose) 10 gm PO DAILY PRN PRN Reason: Constipation Lisinopril (Zestril) 5 mg PO DAILY [facility] Last Admin: 10/20/16 08:09 Dose: Not Given Metoprolol Tartrate (Lopressor) 25 mg PO Q12 [facility] Last Admin: 10/20/16 08:09 Dose: Not Given Sennosides (Senokot Tab) 8.6 mg PO DAILY [facility] Last Admin: 10/20/16 08:11 Dose: Not Given Thiamine HCl (Vitamin B1 Tab) 100 mg PO DAILY [facility] Last Admin: 10/20/16 08:11 Dose: 100 mg - Labs Labs: 10/16/16 06:00 10/16/16 06:00 PT 12.0 Seconds (9.8-13.1) 10/16/16 06:00 INR 1.0 (0.9-1.2) 10/16/16 06:00 APTT 27.9 Seconds (25.6-37.1) 10/16/16 06:00
[2016-10-20] MEDS: Artificial Tears Opht Soln OU PRN (19:31)
[2016-10-21] MEDS: Artificial Tears Opht Soln OU PRN (08:21)
--- NOTE | 2016-10-21 23:44 | CP.PCM.PN ---
Subjective - Date & Time of Evaluation Date of Evaluation: 10/21/16 Time of Evaluation: 23:50 - Subjective Subjective: No Complaint. Objective - Vital Signs/Intake and Output Vital Signs (last 24 hours): Temp Pulse Resp BP Pulse Ox 98.1 F 76 20 102/64 99 10/21/16 20:44 10/21/16 20:44 10/21/16 20:44 10/21/16 20:44 10/21/16 20:44 - Medications Medications: Current Medications Acetaminophen (Tylenol 325mg Tab) 650 mg PO Q4H PRN PRN Reason: for pain scale 5-10 Last Admin: 10/21/16 15:49 Dose: 650 mg Acetazolamide (Diamox 250 Mg Tab) 250 mg PO DAILY [facility] Last Admin: 10/21/16 08:21 Dose: 250 mg Amlodipine Besylate (Norvasc) 5 mg PO DAILY PRN PRN Reason: SBP ABOVE 140 OR DBP ABOVE 90. Artificial Tears (Artificial Tears) 1 drop OU Q6 PRN PRN Reason: Dry eyes Last Admin: 10/21/16 08:21 Dose: 1 drop Aspirin (Aspirin Chewable) 81 mg PO DAILY [facility] Last Admin: 10/21/16 08:21 Dose: 81 mg Atorvastatin Calcium (Lipitor) 40 mg PO HS [facility] Last Admin: 10/21/16 21:06 Dose: 40 mg Folic Acid (Folic Acid) 1 mg PO DAILY [facility] Last Admin: 10/21/16 08:21 Dose: 1 mg Lactulose (Enulose) 10 gm PO DAILY PRN PRN Reason: Constipation Sennosides (Senokot Tab) 8.6 mg PO DAILY [facility] Last Admin: 10/21/16 08:21 Dose: Not Given Thiamine HCl (Vitamin B1 Tab) 100 mg PO DAILY [facility] Last Admin: 10/21/16 08:21 Dose: 100 mg - Labs Labs: 10/16/16 06:00 10/16/16 06:00 PT 12.0 Seconds (9.8-13.1) 10/16/16 06:00 INR 1.0 (0.9-1.2) 10/16/16 06:00 APTT 27.9 Seconds (25.6-37.1) 10/16/16 06:00 Assessment and Plan (1) Brain mass Assessment & Plan: Obstructing Hydrocephalus S/P EVD and Mass resection- Resolved Visual Change- Improving Wound -Healed Status: Acute (2) CVA (cerebral vascular accident) Assessment and Plan: Left Hemiparesis Continue ASA/Atorvastatin Continue Rehab Status: Acute (3) Gait abnormality Assessment and Plan: Improving Continue PT/OT Status: Acute (4) Hydrocephalus, S/P EVD, and Mass Resection Continue PT/OT (5) Fall Two Bed Alarms Fall Precaution Status: Chronic
[2016-10-22] MEDS: Lactulose 10 gm/15 ml Syrup PO PRN (21:11)
--- NOTE | 2016-10-22 23:53 | CP.PCM.PN ---
Subjective - Date & Time of Evaluation Date of Evaluation: 10/22/16 Time of Evaluation: 19:45 - Subjective Subjective: She states feel better. Objective - Vital Signs/Intake and Output Vital Signs (last 24 hours): Temp Pulse Resp BP Pulse Ox 98.2 F 80 20 99/53 L 99 10/22/16 19:58 10/22/16 19:58 10/22/16 19:58 10/22/16 19:58 10/22/16 19:58 - Medications Medications: Current Medications Acetaminophen (Tylenol 325mg Tab) 650 mg PO Q4H PRN PRN Reason: for pain scale 5-10 Last Admin: 10/22/16 21:13 Dose: 650 mg Acetazolamide (Diamox 250 Mg Tab) 250 mg PO DAILY [facility] Last Admin: 10/22/16 08:39 Dose: 250 mg Amlodipine Besylate (Norvasc) 5 mg PO DAILY PRN PRN Reason: SBP ABOVE 140 OR DBP ABOVE 90. Artificial Tears (Artificial Tears) 1 drop OU Q6 PRN PRN Reason: Dry eyes Last Admin: 10/21/16 08:21 Dose: 1 drop Aspirin (Aspirin Chewable) 81 mg PO DAILY [facility] Last Admin: 10/22/16 08:39 Dose: 81 mg Atorvastatin Calcium (Lipitor) 40 mg PO HS [facility] Last Admin: 10/22/16 21:09 Dose: 40 mg Folic Acid (Folic Acid) 1 mg PO DAILY [facility] Last Admin: 10/22/16 08:39 Dose: 1 mg Lactulose (Enulose) 10 gm PO DAILY PRN PRN Reason: Constipation Last Admin: 10/22/16 21:11 Dose: 10 gm Sennosides (Senokot Tab) 8.6 mg PO DAILY [facility] Last Admin: 10/22/16 08:38 Dose: Not Given Thiamine HCl (Vitamin B1 Tab) 100 mg PO DAILY [facility] Last Admin: 10/22/16 08:39 Dose: 100 mg - Labs Labs: 10/16/16 06:00 10/16/16 06:00 PT 12.0 Seconds (9.8-13.1) 10/16/16 06:00 INR 1.0 (0.9-1.2) 10/16/16 06:00 APTT 27.9 Seconds (25.6-37.1) 10/16/16 06:00 - Constitutional Appears: Well, No Acute Distress - Head Exam Head Exam: ATRAUMATIC, NORMAL INSPECTION, NORMOCEPHALIC - Eye Exam Eye Exam: EOMI, Normal appearance, PERRL Pupil Exam: NORMAL ACCOMODATION, PERRL - ENT Exam ENT Exam: Mucous Membranes Moist, Normal Exam - Neck Exam Neck Exam: Full ROM, Normal Inspection. absent: Lymphadenopathy - Respiratory Exam Respiratory Exam: Clear to Ausculation Bilateral, NORMAL BREATHING PATTERN - Cardiovascular Exam Cardiovascular Exam: REGULAR RHYTHM, +S1, +S2. absent: Murmur - GI/Abdominal Exam GI & Abdominal Exam: Soft, Normal Bowel Sounds. absent: Tenderness - Extremities Exam Extremities Exam: Full ROM, Normal Capillary Refill, Normal Inspection. absent : Joint Swelling, Pedal Edema - Back Exam Back Exam: Full ROM, NORMAL INSPECTION - Neurological Exam Neurological Exam: Alert, Awake, CN II-XII Intact, Normal Gait, Oriented x3 Neuro motor strength exam: Left Upper Extremity: 4, Right Upper Extremity: 5, Left Lower Extremity: 4, Right Lower Extremity: 5 - Psychiatric Exam Psychiatric exam: Normal Affect, Normal Mood - Skin Skin Exam: Dry, Intact, Normal Color, Warm Assessment and Plan (1) Brain mass Assessment & Plan: Obstructing Hydrocephalus S/P EVD and Mass resection- Resolved Visual Change- Improving Wound -Healed Status: Acute (2) CVA (cerebral vascular accident) Assessment and Plan: Improving Left Hemiparesis Continue ASA/Atorvastatin Continue Rehab Status: Acute (3) Gait abnormality Assessment and Plan: Improving Continue PT/OT Status: Acute (4) Hydrocephalus, S/P EVD, and Mass Resection Continue PT/OT (5) Fall Two Bed Alarms Fall Precaution Status: Chronic
[2016-10-23] MEDS: Artificial Tears Opht Soln OU PRN ×2 (08:16→20:02)
[2016-10-23] MEDS: Lactulose 10 gm/15 ml Syrup PO PRN (21:05)
--- NOTE | 2016-10-23 23:56 | CP.PCM.PN ---
Subjective - Date & Time of Evaluation Date of Evaluation: 10/23/16 Time of Evaluation: 15:00 - Subjective Subjective: No complaint. Objective - Vital Signs/Intake and Output Vital Signs (last 24 hours): Temp Pulse Resp BP Pulse Ox 96.4 F L 82 20 101/62 100 10/23/16 20:06 10/23/16 20:06 10/23/16 20:06 10/23/16 20:06 10/23/16 20:06 - Medications Medications: Current Medications Acetaminophen (Tylenol 325mg Tab) 650 mg PO Q4H PRN PRN Reason: for pain scale 5-10 Last Admin: 10/23/16 21:04 Dose: 650 mg Acetazolamide (Diamox 250 Mg Tab) 250 mg PO DAILY [facility] Last Admin: 10/23/16 08:16 Dose: 250 mg Artificial Tears (Artificial Tears) 1 drop OU Q6 PRN PRN Reason: Dry eyes Last Admin: 10/23/16 20:02 Dose: 1 drop Aspirin (Aspirin Chewable) 81 mg PO DAILY [facility] Last Admin: 10/23/16 08:16 Dose: 81 mg Atorvastatin Calcium (Lipitor) 40 mg PO HS [facility] Last Admin: 10/23/16 21:05 Dose: 40 mg Folic Acid (Folic Acid) 1 mg PO DAILY [facility] Last Admin: 10/23/16 08:17 Dose: 1 mg Lactulose (Enulose) 10 gm PO DAILY PRN PRN Reason: Constipation Last Admin: 10/23/16 21:05 Dose: 10 gm Sennosides (Senokot Tab) 8.6 mg PO DAILY [facility] Last Admin: 10/23/16 08:17 Dose: 8.6 mg Thiamine HCl (Vitamin B1 Tab) 100 mg PO DAILY [facility] Last Admin: 10/23/16 08:17 Dose: 100 mg - Labs Labs: 10/16/16 06:00 10/16/16 06:00 PT 12.0 Seconds (9.8-13.1) 10/16/16 06:00 INR 1.0 (0.9-1.2) 10/16/16 06:00 APTT 27.9 Seconds (25.6-37.1) 10/16/16 06:00 Assessment and Plan (1) Brain mass Assessment & Plan: Obstructing Hydrocephalus S/P EVD and Mass resection- Resolved Visual Change- Improving Wound -Healed Status: Acute (2) CVA (cerebral vascular accident) Assessment and Plan: Left Hemiparesis Continue ASA/Atorvastatin Continue Rehab Status: Acute (3) Gait abnormality Assessment and Plan: Improving Continue PT/OT Status: Acute (4) Hydrocephalus, S/P EVD, and Mass Resection Continue PT/OT (5) Fall Two Bed Alarms Fall Precaution Status: Chronic
[2016-10-24] MEDS: Artificial Tears Opht Soln OU PRN (08:12)
--- NOTE | 2016-10-24 13:18 | PSY.TMCNF ---
Nursing - Vital Signs Vital Signs (Last 8 hours): Vital Signs 10/24/16 10/24/16 07:34 10:14 Temperature 98.4 F Pulse Rate 69 111 H Respiratory 18 Rate Blood Pressure 94/55 L O2 Sat by Pulse 100 Oximetry Pain: 2 - Precautions: Precautions: Fall Prevention, Seizure - Medications/Other Issues Comment: on aspirin daily - Consults Comment: consult with Neuro surgeon on at 10:30 am - Skin Incision Site: clean & dry Dressing Status: Clean, Dry, Intact Incision: Sutures Intact Incision Line Treatment: chlorhexidine elis - Toileting Toileting: Minimal Assistance - Bladder Management Bladder Pattern: Normal Voiding Method: Toilet Bladder Management: Minimal Assistance Frequency of Accidents: continent - Bowel Management Bowel Pattern: Constipated Comment: on bowel management Bowel Management: Moderate Assistance Frequency of Accidents: none - Transfers Transfers: Minimal Assistance - ADL's ADL's: Minimal Assistance - Pain Management Comments: on tylenol 650mg for LOPEZ, effective - Patient/Family Teaching Comments: safety measures - Goals/Time Frame Comments: to go home safely - Provider Provider: ERL[facility] - Bed Mobility Bed Mobility: Modified Independent - Transfers Wheelchair to Mat: Supervision, Verbal Cues, Contact Guard Sit to Stand: Supervision, Verbal Cues, Contact Guard Comment: RW - Ambulation Level of Assistance: Supervision, Verbal Cues, Contact Guard, Minimal Assistance Distance (ft.): 125 Assistive Devices: Rolling Walker Orthoses: intermittent use of LLE TAP splint Comment: trials of 125 feet with RW with fluctuating assistance. -initially with CG with some runs of CS; as patient fatigues, she requires up to min/mod A for mobility. -patient has 1 LOB on 2nd trial requiring mod A for balance and 1 LOB on 3rd trial requiring max A to maintain balance. -gait training with L sided Tap splint to improve control/coordination - Stair Negotiation Stairs: Level of Assistance: Verbal Cues, Contact Guard, Minimal Assistance, Moderate Assistance Stairs: Assistive Devices: Right Handrail Comment: 1 flight of 8 inch steps with BUE on R rail on both ascent/descent, step to pattern. -CG on ascent. -min/mod on descent; patient reports feeling nervous on descent and requires increased tactile cues at trunk for safety/ comfort. -x 1 trial - Standing Balance Static Stand: Supervision Dynamic Stand: Contact Guard Assist, Minimal Assistance - Pain Pain (assessed during therapy session): 3 Management Techniques: Medication Comment: intermittent reports of headache - Insight/Carryover Insight/Carryover: Good - Patient/Family Education Comment: Recovery process, role of OT/rehab, compensatory strategies, safety, and fall prevention - Assessment/Plan Assessment: Pt displays a flat affect, impaired dynamic balances, impaired LUE coordination and strength, and decreased endurance limiting pt's independence with ADLs and functional transfers - Goals Timeframe: 2 weeks Goals: MOD I toileting. MOD I toilet txfers. MOD I UE and LE dressing. MOD I bathing. MOD I tub txfers. I grooming. I feeding - Provider License Number: [id number] Occupational Therapy - Arousal/Attention/Orientation Level of Consciousness: Awake, Alert Patient Orientation: Person, Place, Time - ADL/IADL Self Feeding: Independent Grooming: Independent Bathing-Upper Extremity: Supervision, Verbal Cues, Set-up Help Bathing-Lower Extremity: Verbal Cues, Set-up Help, Minimal Assistance Dressing-Upper Extremity: Supervision, Verbal Cues, Set-up Help Dressing-Lower Extremity: Contact Guard - Sitting Balance Static Sitting: Independent with upper extremity support Dynamic Sitting: Contact Guard Assist - Transfers Wheelchair to Bed Transfers: Contact Guard Toilet Transfers: Contact Guard - Upper Extremity Status Right Upper Extremity Comment: ROM WFL 3+/5 Left Upper Extremity Comment: ROM WFL 3+/5 - Pain Pain (assessed during therapy session): 3 Alleviating Techniques: Medication Comment: intermittent reports of headache - Insight/Carryover Insight/Carryover: Good - Patient/Family Education Comment: Recovery process, role of OT/rehab, compensatory strategies, safety, and fall prevention - Assessment/Plan Assessment: Pt displays a flat affect, impaired dynamic balances, impaired LUE coordination and strength, and decreased endurance limiting pt's independence with ADLs and functional transfers - Goals Timeframe: 2 weeks Goals: MOD I toileting. MOD I toilet txfers. MOD I UE and LE dressing. MOD I bathing. MOD I tub txfers. I grooming. I feeding - Provider Therapist: Awilda [facility] - Consult Information Patient on Program: Yes Medical Diagnosis: brain mass Treatment Diagnosis: mild cognitive-linguistic deficits - Assessment Memory Impairment: Mild - Plan Assessment: Pt displays a flat affect, impaired dynamic balances, impaired LUE coordination and strength, and decreased endurance limiting pt's independence with ADLs and functional transfers - Provider Therapist: Mary Ludwig License Number: [id number] Recreational Therapy - Participation Participation: Participates in Individual and/or Group Sessions, Monitors His/ Her Own Leisure Time - Attendance Attendance: Daily - Activities Leisure Activities: Television - Socialization Level of Socialization: Initiates/interacts with caregivers but not with peer - Diversional Time Diversional Time: resting in bed, watching television - Assessment Assessment/Plan: Pt displays a flat affect, impaired dynamic balances, impaired LUE coordination and strength, and decreased endurance limiting pt's independence with ADLs and functional transfers - Provider Therapist: Malathi Alva, [employer] SUPERVISOR #[id number] Nutrition - Current Diet Current Diet/ Supplement/ Feedings: Regular diet ensure plus 8 ounces 2 per day - Appetite Percent Meal Consumed: 75-100% - Comments Comments: safety measures - Assessment/Goals/Time Frame Assessment/Goals/Time Frame: on aspirin daily - Provider Provider: Fabi Márquez RD Case Management - Psychosocial Assessment Support Systems: Lian Salas (mother)- [phone], Psychological Interventions/Needs: Patient is alert with intermittent confusion and flat affect. Patient noted with impulsivity. Discharge Concerns: Patient with mild impairments in cognition. Patient will likely require 24 hour supervision at home Patient/Family Meeting: CM met with patient and rehab team Intervention/Goal/Outcome:: 1. Plan: Home with 24 hour supervision. 2. caregiver training. 3. DME needs. 4. f/u appts. 5. continued stay auth, LAD: 10/20. 6. continued emotional support. 7. Tentative discharge date: 10/30/2016 - Discharge Plan Discharge Plan: Home with services Home Services: [facility] - Provider Provider: YAMILE Box, ME[employer] C[employer]TING TEACHER License Number: [id number] Rehabilitation Plan - Treatment Plan Treatment Plan: Physical Therapy, Occupational Therapy, Speech, Dietary, Patient /Family Education - Discharge Plan Estimated Date of Discharge: 10/30/16 Discharge to: Home
--- NOTE | 2016-10-24 16:16 | CP.PCM.PN ---
Subjective - Date & Time of Evaluation Date of Evaluation: 10/24/16 Time of Evaluation: 16:15 - Subjective Subjective: patient seen in the room doing well but has a loss of balance as a major issue which is stemming from her visual issues. She will be trained at a wheelchair level and training of the family will be done she denies pain and is otherwise stable and remains motivated and an excellent acute rehabilitation patient Objective - Vital Signs/Intake and Output Vital Signs (last 24 hours): Temp Pulse Resp BP Pulse Ox 98.4 F 111 H 18 94/55 L 100 10/24/16 07:34 10/24/16 10:14 10/24/16 07:34 10/24/16 07:34 10/24/16 07:34 - Medications Medications: Current Medications Acetaminophen (Tylenol 325mg Tab) 650 mg PO Q4H PRN PRN Reason: for pain scale 5-10 Last Admin: 10/24/16 10:32 Dose: 650 mg Acetazolamide (Diamox 250 Mg Tab) 250 mg PO DAILY [facility] Last Admin: 10/24/16 08:10 Dose: 250 mg Artificial Tears (Artificial Tears) 1 drop OU Q6 PRN PRN Reason: Dry eyes Last Admin: 10/24/16 08:12 Dose: 1 drop Aspirin (Aspirin Chewable) 81 mg PO DAILY [facility] Last Admin: 10/24/16 08:09 Dose: 81 mg Atorvastatin Calcium (Lipitor) 40 mg PO HS [facility] Last Admin: 10/23/16 21:05 Dose: 40 mg Folic Acid (Folic Acid) 1 mg PO DAILY [facility] Last Admin: 10/24/16 08:09 Dose: 1 mg Lactulose (Enulose) 10 gm PO DAILY PRN PRN Reason: Constipation Last Admin: 10/23/16 21:05 Dose: 10 gm Lactulose (Enulose) 20 gm PO DAILY PRN PRN Reason: Constipation Sennosides (Senokot Tab) 8.6 mg PO DAILY [facility] Last Admin: 10/24/16 08:09 Dose: 8.6 mg Thiamine HCl (Vitamin B1 Tab) 100 mg PO DAILY [facility] Last Admin: 10/24/16 08:09 Dose: 100 mg - Labs Labs: 10/16/16 06:00 10/16/16 06:00 PT 12.0 Seconds (9.8-13.1) 10/16/16 06:00 INR 1.0 (0.9-1.2) 10/16/16 06:00 APTT 27.9 Seconds (25.6-37.1) 10/16/16 06:00
--- NOTE | 2016-10-24 19:04 | CP.PCM.PN ---
Subjective - Date & Time of Evaluation Date of Evaluation: 10/24/16 Time of Evaluation: 19:00 Objective - Vital Signs/Intake and Output Vital Signs (last 24 hours): Temp Pulse Resp BP Pulse Ox 98.4 F 111 H 18 94/55 L 100 10/24/16 07:34 10/24/16 10:14 10/24/16 07:34 10/24/16 07:34 10/24/16 07:34 - Medications Medications: Current Medications Acetaminophen (Tylenol 325mg Tab) 650 mg PO Q4H PRN PRN Reason: for pain scale 5-10 Last Admin: 10/24/16 17:26 Dose: 650 mg Acetazolamide (Diamox 250 Mg Tab) 250 mg PO DAILY [facility] Last Admin: 10/24/16 08:10 Dose: 250 mg Artificial Tears (Artificial Tears) 1 drop OU Q6 PRN PRN Reason: Dry eyes Last Admin: 10/24/16 08:12 Dose: 1 drop Aspirin (Aspirin Chewable) 81 mg PO DAILY [facility] Last Admin: 10/24/16 08:09 Dose: 81 mg Atorvastatin Calcium (Lipitor) 40 mg PO HS [facility] Last Admin: 10/23/16 21:05 Dose: 40 mg Folic Acid (Folic Acid) 1 mg PO DAILY [facility] Last Admin: 10/24/16 08:09 Dose: 1 mg Lactulose (Enulose) 10 gm PO DAILY PRN PRN Reason: Constipation Last Admin: 10/23/16 21:05 Dose: 10 gm Sennosides (Senokot Tab) 8.6 mg PO DAILY [facility] Last Admin: 10/24/16 08:09 Dose: 8.6 mg Thiamine HCl (Vitamin B1 Tab) 100 mg PO DAILY [facility] Last Admin: 10/24/16 08:09 Dose: 100 mg - Labs Labs: 10/16/16 06:00 10/16/16 06:00 PT 12.0 Seconds (9.8-13.1) 10/16/16 06:00 INR 1.0 (0.9-1.2) 10/16/16 06:00 APTT 27.9 Seconds (25.6-37.1) 10/16/16 06:00 Assessment and Plan (1) Brain mass Status: Chronic
[2016-10-25] MEDS: Artificial Tears Opht Soln OU PRN (08:32)
--- NOTE | 2016-10-25 12:41 | CP.PCM.PN ---
Subjective - Date & Time of Evaluation Date of Evaluation: 10/25/16 Time of Evaluation: 12:40 - Subjective Subjective: patient seen in room had a good morning in therapy feels that she is getting more stable and worked on safety concerns continue current care Objective - Vital Signs/Intake and Output Vital Signs (last 24 hours): Temp Pulse Resp BP Pulse Ox 97.7 F 78 18 97/52 L 100 10/25/16 07:30 10/25/16 07:30 10/25/16 07:30 10/25/16 07:30 10/25/16 07:30 - Medications Medications: Current Medications Acetaminophen (Tylenol 325mg Tab) 650 mg PO Q4H PRN PRN Reason: for pain scale 5-10 Last Admin: 10/25/16 10:29 Dose: 650 mg Acetazolamide (Diamox 250 Mg Tab) 250 mg PO DAILY [facility] Last Admin: 10/25/16 08:32 Dose: 250 mg Artificial Tears (Artificial Tears) 1 drop OU Q6 PRN PRN Reason: Dry eyes Last Admin: 10/25/16 08:32 Dose: 1 drop Aspirin (Aspirin Chewable) 81 mg PO DAILY [facility] Last Admin: 10/25/16 08:32 Dose: 81 mg Atorvastatin Calcium (Lipitor) 40 mg PO HS [facility] Last Admin: 10/24/16 21:03 Dose: 40 mg Folic Acid (Folic Acid) 1 mg PO DAILY [facility] Last Admin: 10/25/16 08:32 Dose: 1 mg Lactulose (Enulose) 10 gm PO DAILY PRN PRN Reason: Constipation Last Admin: 10/23/16 21:05 Dose: 10 gm Sennosides (Senokot Tab) 8.6 mg PO DAILY [facility] Last Admin: 10/25/16 08:32 Dose: 8.6 mg Thiamine HCl (Vitamin B1 Tab) 100 mg PO DAILY [facility] Last Admin: 10/25/16 08:32 Dose: 100 mg - Labs Labs: 10/16/16 06:00 10/16/16 06:00 PT 12.0 Seconds (9.8-13.1) 10/16/16 06:00 INR 1.0 (0.9-1.2) 10/16/16 06:00 APTT 27.9 Seconds (25.6-37.1) 10/16/16 06:00
--- NOTE | 2016-10-25 23:39 | CP.PCM.PN ---
Subjective - Date & Time of Evaluation Date of Evaluation: 10/25/16 Time of Evaluation: 18:00 Objective - Vital Signs/Intake and Output Vital Signs (last 24 hours): Temp Pulse Resp BP Pulse Ox 97.9 F 76 20 99/62 L 100 10/25/16 19:46 10/25/16 19:46 10/25/16 19:46 10/25/16 19:46 10/25/16 19:46 - Medications Medications: Current Medications Acetaminophen (Tylenol 325mg Tab) 650 mg PO Q4H PRN PRN Reason: for pain scale 5-10 Last Admin: 10/25/16 17:28 Dose: 650 mg Acetazolamide (Diamox 250 Mg Tab) 250 mg PO DAILY [facility] Last Admin: 10/25/16 08:32 Dose: 250 mg Artificial Tears (Artificial Tears) 1 drop OU Q6 PRN PRN Reason: Dry eyes Last Admin: 10/25/16 08:32 Dose: 1 drop Aspirin (Aspirin Chewable) 81 mg PO DAILY [facility] Last Admin: 10/25/16 08:32 Dose: 81 mg Atorvastatin Calcium (Lipitor) 40 mg PO HS [facility] Last Admin: 10/25/16 21:06 Dose: 40 mg Folic Acid (Folic Acid) 1 mg PO DAILY [facility] Last Admin: 10/25/16 08:32 Dose: 1 mg Lactulose (Enulose) 10 gm PO DAILY PRN PRN Reason: Constipation Last Admin: 10/23/16 21:05 Dose: 10 gm Sennosides (Senokot Tab) 8.6 mg PO DAILY [facility] Last Admin: 10/25/16 08:32 Dose: 8.6 mg Thiamine HCl (Vitamin B1 Tab) 100 mg PO DAILY [facility] Last Admin: 10/25/16 08:32 Dose: 100 mg - Labs Labs: 10/16/16 06:00 10/16/16 06:00 PT 12.0 Seconds (9.8-13.1) 10/16/16 06:00 INR 1.0 (0.9-1.2) 10/16/16 06:00 APTT 27.9 Seconds (25.6-37.1) 10/16/16 06:00 Assessment and Plan (1) Brain mass Status: Chronic
[2016-10-26] MEDS ORDERED: Oxycodone/Acetaminophen 5/325 mg Tab PO STA (16:26)
--- NOTE | 2016-10-26 17:54 | CP.PCM.PN ---
Subjective - Date & Time of Evaluation Date of Evaluation: 10/26/16 Time of Evaluation: 17:52 - Subjective Subjective: Patient seen in room she has not been a complainer at all and now with severe headache, not as much dizziness, but real headache she couldn't keep her head up to eat I have ordered a neurology consult given concern of her history Objective - Vital Signs/Intake and Output Vital Signs (last 24 hours): Temp Pulse Resp BP Pulse Ox 98.2 F 75 22 112/70 99 10/26/16 08:18 10/26/16 08:18 10/26/16 08:18 10/26/16 08:18 10/26/16 08:18 - Medications Medications: Current Medications Acetaminophen (Tylenol 325mg Tab) 650 mg PO Q4H PRN PRN Reason: for pain scale 5-10 Last Admin: 10/26/16 14:33 Dose: 650 mg Acetazolamide (Diamox 250 Mg Tab) 250 mg PO DAILY [facility] Last Admin: 10/26/16 08:22 Dose: 250 mg Artificial Tears (Artificial Tears) 1 drop OU Q6 PRN PRN Reason: Dry eyes Last Admin: 10/25/16 08:32 Dose: 1 drop Aspirin (Aspirin Chewable) 81 mg PO DAILY [facility] Last Admin: 10/26/16 08:26 Dose: 81 mg Atorvastatin Calcium (Lipitor) 40 mg PO HS [facility] Last Admin: 10/25/16 21:06 Dose: 40 mg Folic Acid (Folic Acid) 1 mg PO DAILY [facility] Last Admin: 10/26/16 08:22 Dose: 1 mg Lactulose (Enulose) 10 gm PO DAILY PRN PRN Reason: Constipation Last Admin: 10/23/16 21:05 Dose: 10 gm Sennosides (Senokot Tab) 8.6 mg PO DAILY [facility] Last Admin: 10/26/16 08:22 Dose: 8.6 mg Thiamine HCl (Vitamin B1 Tab) 100 mg PO DAILY [facility] Last Admin: 10/26/16 08:22 Dose: 100 mg - Labs Labs: 10/16/16 06:00 10/16/16 06:00 PT 12.0 Seconds (9.8-13.1) 10/16/16 06:00 INR 1.0 (0.9-1.2) 10/16/16 06:00 APTT 27.9 Seconds (25.6-37.1) 10/16/16 06:00
[2016-10-26] MEDS ORDERED: Dexamethasone 10 MG in Sodium Chloride 0.9% 50 ML IV ONE (18:40)
--- NOTE | 2016-10-26 19:41 | CP.PCM.PN ---
Subjective - Date & Time of Evaluation Date of Evaluation: 10/26/16 Time of Evaluation: 19:00 Objective - Vital Signs/Intake and Output Vital Signs (last 24 hours): Temp Pulse Resp BP Pulse Ox 98.2 F 75 22 112/70 99 10/26/16 08:18 10/26/16 08:18 10/26/16 08:18 10/26/16 08:18 10/26/16 08:18 - Medications Medications: Current Medications Acetaminophen (Tylenol 325mg Tab) 650 mg PO Q4H PRN PRN Reason: for pain scale 5-10 Last Admin: 10/26/16 14:33 Dose: 650 mg Acetazolamide (Diamox 250 Mg Tab) 250 mg PO DAILY [facility] Last Admin: 10/26/16 08:22 Dose: 250 mg Artificial Tears (Artificial Tears) 1 drop OU Q6 PRN PRN Reason: Dry eyes Last Admin: 10/25/16 08:32 Dose: 1 drop Aspirin (Aspirin Chewable) 81 mg PO DAILY [facility] Last Admin: 10/26/16 08:26 Dose: 81 mg Atorvastatin Calcium (Lipitor) 40 mg PO HS [facility] Last Admin: 10/25/16 21:06 Dose: 40 mg Folic Acid (Folic Acid) 1 mg PO DAILY [facility] Last Admin: 10/26/16 08:22 Dose: 1 mg Lactulose (Enulose) 10 gm PO DAILY PRN PRN Reason: Constipation Last Admin: 10/23/16 21:05 Dose: 10 gm Sennosides (Senokot Tab) 8.6 mg PO DAILY [facility] Last Admin: 10/26/16 08:22 Dose: 8.6 mg Thiamine HCl (Vitamin B1 Tab) 100 mg PO DAILY [facility] Last Admin: 10/26/16 08:22 Dose: 100 mg - Labs Labs: 10/16/16 06:00 10/16/16 06:00 PT 12.0 Seconds (9.8-13.1) 10/16/16 06:00 INR 1.0 (0.9-1.2) 10/16/16 06:00 APTT 27.9 Seconds (25.6-37.1) 10/16/16 06:00 Assessment and Plan (1) Brain mass Status: Chronic
--- NOTE | 2016-10-26 20:17 | CT ---
EXAM: CT Head Without Intravenous Contrast CLINICAL HISTORY: 41 years old, female; Pain; Headache; Headache not specified; Prior surgery; Surgery date: <1 month; Surgery type: Brain surgery 10-04-2016; Patient HX: HX of CVA; Additional info: Severe headache TECHNIQUE: Axial computed tomography images of the head/brain without intravenous contrast. All CT scans at this facility use one or more dose reduction techniques, viz.: automated exposure control; ma/kV adjustment per patient size (including targeted exams where dose is matched to indication; i.e. head); or iterative reconstruction technique. Coronal and sagittal reformatted images were created and reviewed. EXAM DATE/TIME: 10/26/2016 7:15 PM COMPARISON: CT - HEAD W/O CONTRAST 10/15/2016 1:42:14 PM FINDINGS: Brain: There are postsurgical changes of suboccipital craniotomy. There is been slight interval decrease in size of lateral and third ventricles. The fourth ventricle has increased in size. There is residual mass effect and midline shift in the posterior fossa. There is been interval decrease in posterior fossa edema and air. There is a right frontal fernando hole. There has been interval decrease in right frontal lobe edema. No intra-axial or extra-axial hemorrhages are identified. Rodgers-white differentiation is visualized. Ventricles: See above. Bones/joints: See above Soft tissues: unremarkable Sinuses: There is no acute sinusitis. Middle ears and mastoids: Middle ears and mastoids are unremarkable. Orbits: Orbital contents are unremarkable. IMPRESSION: Suboccipital craniotomy with interval decrease in posterior fossa edema and emphysema; slight interval decrease in size of lateral and third ventricles with increased conspicuity of the fourth ventricle; decreasing right frontal lobe edema in the region of the fernando hole; no bleed
[2016-10-26] MEDS ORDERED: Valproate 500 MG in Sodium Chloride 0.9% 100 ML IVPB ONE (20:46)
--- NOTE | 2016-10-27 08:04 | CP.PCM.CON ---
History of Present Illness - History of Present Illness History of Present Illness: Pt seen for sup therapy. Pt spoke of anxiety regarding physical challenges. Anxiety management strategies introduced to reduce distress. Pt spoke of her current med issues, stressors and looking forward to her future. plan: Continued Sup therapy Past Patient History - Past Medical History & Family History Past Medical History?: Yes - Past Social History Smoking Status: Current Some Days Smoker Alcohol: None Drugs: Denies - NEUROLOGICAL HX Cerebrovascular Accident: Yes Other/Comment: obstructive hydrocephalus. 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 - HEMATOLOGICAL/ONCOLOGICAL Hx AIDS: No Hx Human Immunodeficiency Virus (HIV): No - MUSCULOSKELETAL/RHEUMATOLOGICAL Hx Falls: Yes () - PSYCHIATRIC Hx Substance Use: No - ANESTHESIA Hx Anesthesia: Yes Hx Anesthesia Reactions: No Has any member of the family had a problem w/ anesthesia?: No Meds Allergies/Adverse Reactions: Allergies Allergy/AdvReac Type Severity Reaction Status Date / Time No Known Allergies Allergy Verified 10/14/16 12:17 - Medications Medications: Current Medications Acetaminophen (Tylenol 325mg Tab) 650 mg PO Q4H PRN PRN Reason: for pain scale 5-10 Last Admin: 10/26/16 14:33 Dose: 650 mg Acetazolamide (Diamox 250 Mg Tab) 250 mg PO DAILY [facility] Last Admin: 10/26/16 08:22 Dose: 250 mg Artificial Tears (Artificial Tears) 1 drop OU Q6 PRN PRN Reason: Dry eyes Last Admin: 10/25/16 08:32 Dose: 1 drop Aspirin (Aspirin Chewable) 81 mg PO DAILY [facility] Last Admin: 10/26/16 08:26 Dose: 81 mg Atorvastatin Calcium (Lipitor) 40 mg PO HS [facility] Last Admin: 10/26/16 21:18 Dose: 40 mg Folic Acid (Folic Acid) 1 mg PO DAILY [facility] Last Admin: 10/26/16 08:22 Dose: 1 mg Lactulose (Enulose) 10 gm PO DAILY PRN PRN Reason: Constipation Last Admin: 10/23/16 21:05 Dose: 10 gm Sennosides (Senokot Tab) 8.6 mg PO DAILY [facility] Last Admin: 10/26/16 08:22 Dose: 8.6 mg Thiamine HCl (Vitamin B1 Tab) 100 mg PO DAILY [facility] Last Admin: 10/26/16 08:22 Dose: 100 mg Results - Vital Signs Recent Vital Signs: Last Vital Signs Temp 98.1 F 10/27/16 08:00 Pulse 76 10/27/16 08:00 Resp 18 10/27/16 08:00 BP 117/66 10/27/16 08:00 Pulse Ox 99 10/27/16 08:00 - Labs Result Diagrams: 10/16/16 06:00 10/16/16 06:00
--- NOTE | 2016-10-27 12:19 | CP.PCM.PN ---
Subjective - Date & Time of Evaluation Date of Evaluation: 10/27/16 Time of Evaluation: 11:00 - Subjective Subjective: Seen and examined at the bed side. Denies any LOPEZ. Visual change improved. Objective - Vital Signs/Intake and Output Vital Signs (last 24 hours): Temp Pulse Resp BP Pulse Ox 98.1 F 76 18 117/66 99 10/27/16 08:00 10/27/16 08:00 10/27/16 08:00 10/27/16 08:00 10/27/16 08:00 - Medications Medications: Current Medications Acetaminophen (Tylenol 325mg Tab) 650 mg PO Q4H PRN PRN Reason: for pain scale 5-10 Last Admin: 10/26/16 14:33 Dose: 650 mg Acetazolamide (Diamox 250 Mg Tab) 250 mg PO DAILY [facility] Last Admin: 10/27/16 08:30 Dose: 250 mg Artificial Tears (Artificial Tears) 1 drop OU Q6 PRN PRN Reason: Dry eyes Last Admin: 10/25/16 08:32 Dose: 1 drop Aspirin (Aspirin Chewable) 81 mg PO DAILY [facility] Last Admin: 10/27/16 08:31 Dose: 81 mg Atorvastatin Calcium (Lipitor) 40 mg PO HS [facility] Last Admin: 10/26/16 21:18 Dose: 40 mg Folic Acid (Folic Acid) 1 mg PO DAILY [facility] Last Admin: 10/27/16 08:30 Dose: 1 mg Lactulose (Enulose) 10 gm PO DAILY PRN PRN Reason: Constipation Last Admin: 10/23/16 21:05 Dose: 10 gm Sennosides (Senokot Tab) 8.6 mg PO DAILY [facility] Last Admin: 10/27/16 08:30 Dose: 8.6 mg Thiamine HCl (Vitamin B1 Tab) 100 mg PO DAILY [facility] Last Admin: 10/27/16 08:30 Dose: 100 mg - Labs Labs: 10/16/16 06:00 10/16/16 06:00 PT 12.0 Seconds (9.8-13.1) 10/16/16 06:00 INR 1.0 (0.9-1.2) 10/16/16 06:00 APTT 27.9 Seconds (25.6-37.1) 10/16/16 06:00 - Constitutional Appears: Well, No Acute Distress - Head Exam Additional comments: +Scalp Healed scar with Sutures. - Eye Exam Eye Exam: EOMI, Normal appearance, PERRL Pupil Exam: NORMAL ACCOMODATION, PERRL - ENT Exam ENT Exam: Mucous Membranes Moist, Normal Exam - Neck Exam Neck Exam: Full ROM, Normal Inspection. absent: Lymphadenopathy - Respiratory Exam Respiratory Exam: Clear to Ausculation Bilateral, NORMAL BREATHING PATTERN - Cardiovascular Exam Cardiovascular Exam: REGULAR RHYTHM, +S1, +S2. absent: Murmur - GI/Abdominal Exam GI & Abdominal Exam: Soft, Normal Bowel Sounds. absent: Tenderness - Extremities Exam Extremities Exam: Full ROM, Normal Capillary Refill, Normal Inspection. absent : Joint Swelling, Pedal Edema - Back Exam Back Exam: NORMAL INSPECTION - Neurological Exam Neurological Exam: Alert, Awake, CN II-XII Intact, Normal Gait, Oriented x3 Neuro motor strength exam: Left Upper Extremity: 4, Right Upper Extremity: 5, Left Lower Extremity: 4, Right Lower Extremity: 5 - Psychiatric Exam Psychiatric exam: Normal Affect, Normal Mood - Skin Skin Exam: Dry, Intact, Normal Color, Warm - Additional Findings Additional findings: CT Head W/O Contrast: IMPRESSION: Suboccipital craniotomy with interval decrease in posterior fossa edema and emphysema; slight interval decrease in size of lateral and third ventricles with increased conspicuity of the fourth ventricle; decreasing right frontal lobe edema in the region of the fernando hole; no bleed Assessment and Plan (1) Brain mass Assessment & Plan: IMproving Obstructing Hydrocephalus S/P EVD and Mass resection- Resolved Visual Change- Improving Wound -Healed Status: Acute (2) CVA (cerebral vascular accident) Assessment and Plan: Left Hemiparesis- Improving Continue ASA/Atorvastatin Continue Rehab Status: Acute (3) Gait abnormality Assessment and Plan: Improving Continue PT/OT Status: Acute (4) Hydrocephalus, S/P EVD, and Mass Resection Continue PT/OT (5) Fall Two Bed Alarms Fall Precaution Status: Chronic
--- NOTE | 2016-10-27 12:31 | CP.PCM.CON ---
History of Present Illness - History of Present Illness History of Present Illness: Ms. 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 Since being here, she has been complaining of a headache that is 6-7 in severity in the occipital and frontal regions. Yesterday, the headache become more severe and intense. I was called and asked for a STAT CT head, which showed improvement and stability. I recommended dexamethasone 10 mg IV once. Today, the patient states that the headache is completely gone. She had no other complaints. Review of Systems - Review of Systems All systems: reviewed and no additional remarkable complaints except Past Patient History - Past Medical History & Family History Past Medical History?: Yes - Past Social History Smoking Status: Current Some Days Smoker Alcohol: None Drugs: Denies - NEUROLOGICAL HX Cerebrovascular Accident: Yes Other/Comment: obstructive hydrocephalus. 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 - HEMATOLOGICAL/ONCOLOGICAL Hx AIDS: No Hx Human Immunodeficiency Virus (HIV): No - MUSCULOSKELETAL/RHEUMATOLOGICAL Hx Falls: Yes () - PSYCHIATRIC Hx Substance Use: No - ANESTHESIA Hx Anesthesia: Yes Hx Anesthesia Reactions: No Has any member of the family had a problem w/ anesthesia?: No Meds Allergies/Adverse Reactions: Allergies Allergy/AdvReac Type Severity Reaction Status Date / Time No Known Allergies Allergy Verified 10/14/16 12:17 - Medications Medications: Current Medications Acetaminophen (Tylenol 325mg Tab) 650 mg PO Q4H PRN PRN Reason: for pain scale 5-10 Last Admin: 10/26/16 14:33 Dose: 650 mg Acetazolamide (Diamox 250 Mg Tab) 250 mg PO DAILY [facility] Last Admin: 10/27/16 08:30 Dose: 250 mg Artificial Tears (Artificial Tears) 1 drop OU Q6 PRN PRN Reason: Dry eyes Last Admin: 10/25/16 08:32 Dose: 1 drop Aspirin (Aspirin Chewable) 81 mg PO DAILY [facility] Last Admin: 10/27/16 08:31 Dose: 81 mg Atorvastatin Calcium (Lipitor) 40 mg PO HS [facility] Last Admin: 10/26/16 21:18 Dose: 40 mg Folic Acid (Folic Acid) 1 mg PO DAILY [facility] Last Admin: 10/27/16 08:30 Dose: 1 mg Lactulose (Enulose) 10 gm PO DAILY PRN PRN Reason: Constipation Last Admin: 10/23/16 21:05 Dose: 10 gm Sennosides (Senokot Tab) 8.6 mg PO DAILY [facility] Last Admin: 10/27/16 08:30 Dose: 8.6 mg Thiamine HCl (Vitamin B1 Tab) 100 mg PO DAILY [facility] Last Admin: 10/27/16 08:30 Dose: 100 mg Physical Exam - Constitutional Appears: Well - Head Exam Additional comments: evidence of previous posterior craniotomy and EVD. - Eye Exam Eye Exam: EOMI, Normal appearance, PERRL - ENT Exam ENT Exam: Mucous Membranes Moist, Normal Exam - Neck Exam Neck exam: Positive for: Normal Inspection - Respiratory Exam Respiratory Exam: Clear to Auscultation Bilateral, NORMAL BREATHING PATTERN - Cardiovascular Exam Cardiovascular Exam: REGULAR RHYTHM, +S1, +S2 - GI/Abdominal Exam GI & Abdominal Exam: Normal Bowel Sounds, Soft. absent: Tenderness - Rectal Exam Rectal Exam: Deferred - Extremities Exam Extremities exam: Positive for: normal inspection - Back Exam Back exam: NORMAL INSPECTION - Neurological Exam Neurological exam: Abnormal Gait, CN II-XII Intact, Oriented x3 Additional comments: Ataxia in bilateral upper extremities, but worse on the left as compared with the right. Ataxia to heal to giles worse on the left. Strength is relatively symmetrical. Reflexes are brisk throughout. Sensation is intact to LT/P/T. Plantar response is upgoing on the left and muted on the right. - Psychiatric Exam Psychiatric exam: Normal Affect, Normal Mood - Skin Skin Exam: Dry, Intact, Normal Color, Warm Results - Vital Signs Recent Vital Signs: Last Vital Signs Temp 98.1 F 10/27/16 08:00 Pulse 76 10/27/16 08:00 Resp 18 10/27/16 08:00 BP 117/66 10/27/16 08:00 Pulse Ox 99 10/27/16 08:00 - Labs Result Diagrams: 10/16/16 06:00 10/16/16 06:00 - Imaging and Cardiology CT scan - head Status: Image reviewed by me, Report reviewed by me (Improved post-resection CT head.) Assessment & Plan - Assessment and Plan (Free Text) Assessment: Headache was migraine-type likely due to edema around the dura causing irritation in the trigeminal distribution. This improved with Decadron 10 mg IV ONCE. Plan: I recommend starting magnesium oxide 400 mg PO BID for prophylaxis and may give Decadron again 10 mg IV if needed for headache, not to exceed once a day for 4 days. Continue PT/OT plan, DVT Px, GI Px and follow up with neurosurgery.
[2016-10-27] MEDS ORDERED: Dexamethasone 10 MG in Sodium Chloride 0.9% 50 ML IVPB PRN (12:33)
--- NOTE | 2016-10-27 14:32 | PN ---
SUBJECTIVE: The patient is a 41-year-old black female admitted with status post brain mass, obstructive hydrocephalous, gait difficultly, no acute complaints at present. PHYSICAL EXAMINATION VITAL SIGNS: Stable. NECK: Supple. CHEST: Symmetrical. HEART: Sounds S1 and S2. ABDOMEN: Benign. EXTREMITIES: No clubbing, cyanosis or edema. IMPRESSION: Status post brain mass, obstructive hydrocephalous, gait difficulty, deconditioning, nerve palsy, status post removal of sutures from the back of the head and also the top of the head. No acute problems noted at present. The patient to follow up with neurosurgeon after discharge. Continue therapy program at present. PROCEDURE DONE: Removal of sutures on top and back of the head. José Luis Ortiz MD
[2016-10-27] MEDS: Magnesium Oxide 400 mg Tab UD PO SCH (16:19)
[2016-10-28] MEDS: Artificial Tears Opht Soln OU PRN (08:32)
[2016-10-28] MEDS: Magnesium Oxide 400 mg Tab UD PO SCH ×2 (08:34→17:30)
[2016-10-28] MEDS ORDERED: Lactulose 10 gm/15 ml Syrup PO PRN (15:40)
--- NOTE | 2016-10-28 23:16 | CP.PCM.PN ---
Subjective - Date & Time of Evaluation Date of Evaluation: 10/28/16 Time of Evaluation: 15:30 Objective - Vital Signs/Intake and Output Vital Signs (last 24 hours): Temp Pulse Resp BP Pulse Ox 100.9 F H 97 H 18 104/58 L 99 10/28/16 20:28 10/28/16 20:28 10/28/16 20:28 10/28/16 20:28 10/28/16 20:28 - Medications Medications: Current Medications Acetaminophen (Tylenol 325mg Tab) 650 mg PO Q4H PRN PRN Reason: for pain scale 5-10 Last Admin: 10/28/16 21:22 Dose: 650 mg Acetazolamide (Diamox 250 Mg Tab) 250 mg PO DAILY [facility] Last Admin: 10/28/16 08:34 Dose: 250 mg Artificial Tears (Artificial Tears) 1 drop OU Q6 PRN PRN Reason: Dry eyes Last Admin: 10/28/16 08:32 Dose: 1 drop Aspirin (Aspirin Chewable) 81 mg PO DAILY [facility] Last Admin: 10/28/16 08:33 Dose: 81 mg Atorvastatin Calcium (Lipitor) 40 mg PO HS [facility] Last Admin: 10/28/16 21:19 Dose: 40 mg Folic Acid (Folic Acid) 1 mg PO DAILY [facility] Last Admin: 10/28/16 08:34 Dose: 1 mg Dexamethasone 10 mg/ Sodium (Chloride) 51 mls @ 102 mls/hr IVPB DAILY PRN PRN Reason: headache severity over 09/25 Stop: 10/30/16 13:00 Lactulose (Enulose) 10 gm PO DAILY PRN PRN Reason: Constipation Magnesium Oxide (Mag-Ox) 400 mg PO BID [facility] Last Admin: 10/28/16 17:30 Dose: 400 mg Sennosides (Senokot Tab) 8.6 mg PO DAILY [facility] Last Admin: 10/28/16 08:34 Dose: 8.6 mg Thiamine HCl (Vitamin B1 Tab) 100 mg PO DAILY [facility] Last Admin: 10/28/16 08:33 Dose: 100 mg - Labs Labs: 10/16/16 06:00 10/16/16 06:00 PT 12.0 Seconds (9.8-13.1) 10/16/16 06:00 INR 1.0 (0.9-1.2) 10/16/16 06:00 APTT 27.9 Seconds (25.6-37.1) 10/16/16 06:00 Assessment and Plan (1) Brain mass Status: Chronic
[2016-10-29] MEDS: Artificial Tears Opht Soln OU PRN (08:44)
[2016-10-29] MEDS: Magnesium Oxide 400 mg Tab UD PO SCH ×2 (08:44→17:21)
[2016-10-29 10:05] VITALS: O2SAT 100
[2016-10-29] MEDS ORDERED: Artificial Tears Opht Soln OU PRN (12:44)
--- NOTE | 2016-10-29 14:58 | CP.PCM.PN ---
Subjective - Date & Time of Evaluation Date of Evaluation: 10/28/16 Time of Evaluation: 12:00 - Subjective Subjective: No acute complaints of any headache or pain Objective - Vital Signs/Intake and Output Vital Signs (last 24 hours): Temp Pulse Resp BP Pulse Ox 98 F 83 20 101/53 L 100 10/29/16 08:00 10/29/16 08:00 10/29/16 08:00 10/29/16 08:00 10/29/16 08:00 - Medications Medications: Current Medications Acetaminophen (Tylenol 325mg Tab) 650 mg PO Q4H PRN PRN Reason: for pain scale 5-10 Last Admin: 10/28/16 21:22 Dose: 650 mg Acetaminophen (Tylenol 325mg Tab) 650 mg PO Q4 PRN PRN Reason: Headache Acetazolamide (Diamox 250 Mg Tab) 250 mg PO DAILY [facility] Last Admin: 10/29/16 08:45 Dose: 250 mg Artificial Tears (Artificial Tears) 1 drop OU Q6 PRN PRN Reason: Dry eyes Aspirin (Aspirin Chewable) 81 mg PO DAILY [facility] Last Admin: 10/29/16 08:44 Dose: 81 mg Aspirin (Aspirin Chewable) 81 mg PO DAILY [facility] Atorvastatin Calcium (Lipitor) 40 mg PO HS [facility] Last Admin: 10/28/16 21:19 Dose: 40 mg Folic Acid (Folic Acid) 1 mg PO DAILY [facility] Last Admin: 10/29/16 08:44 Dose: 1 mg Folic Acid (Folic Acid) 1 mg PO DAILY [facility] Dexamethasone 10 mg/ Sodium (Chloride) 51 mls @ 102 mls/hr IVPB DAILY PRN PRN Reason: headache severity over 09/25 Stop: 10/30/16 13:00 Lactulose (Enulose) 10 gm PO DAILY PRN PRN Reason: Constipation Magnesium Oxide (Mag-Ox) 400 mg PO BID [facility] Last Admin: 10/29/16 08:44 Dose: 400 mg Sennosides (Senokot Tab) 8.6 mg PO DAILY [facility] Last Admin: 10/29/16 08:44 Dose: 8.6 mg Sennosides (Senokot Tab) 8.6 mg PO DAILY [facility] Thiamine HCl (Vitamin B1 Tab) 100 mg PO DAILY [facility] Last Admin: 10/29/16 08:44 Dose: 100 mg Thiamine HCl (Vitamin B1 Tab) 100 mg PO DAILY [facility] - Labs Labs: 10/16/16 06:00 10/16/16 06:00 PT 12.0 Seconds (9.8-13.1) 10/16/16 06:00 INR 1.0 (0.9-1.2) 10/16/16 06:00 APTT 27.9 Seconds (25.6-37.1) 10/16/16 06:00 - Head Exam Head Exam: ATRAUMATIC, NORMAL INSPECTION, NORMOCEPHALIC - Eye Exam Eye Exam: EOMI, Normal appearance Pupil Exam: NORMAL ACCOMODATION, PERRL - ENT Exam ENT Exam: Mucous Membranes Moist, Normal Exam - Neck Exam Neck Exam: Normal Inspection - Respiratory Exam Respiratory Exam: NORMAL BREATHING PATTERN - Cardiovascular Exam Cardiovascular Exam: REGULAR RHYTHM - GI/Abdominal Exam GI & Abdominal Exam: Normal Bowel Sounds - Rectal Exam Rectal Exam: NORMAL INSPECTION - Exam External exam: NORMAL EXTERNAL EXAM - Extremities Exam Extremities Exam: Normal Capillary Refill, Normal Inspection - Back Exam Back Exam: NORMAL INSPECTION - Neurological Exam Neurological Exam: Alert, Awake Neuro motor strength exam: Left Upper Extremity: 3, Right Upper Extremity: 3, Left Lower Extremity: 3, Right Lower Extremity: 3 - Psychiatric Exam Psychiatric exam: Normal Affect, Normal Mood - Skin Skin Exam: Normal Color Assessment and Plan (1) Brain mass Status: Chronic (2) Hydrocephalus Status: Acute (3) Gait abnormality Status: Acute (4) CVA (cerebral vascular accident) Assessment & Plan: plan to continue with physical, occupational therapy status post removal of sutures from the scalp Dc for sunday Covering for Dr Lowery untilever sunday Status: Acute
--- NOTE | 2016-10-29 23:54 | CP.PCM.PN ---
Subjective - Date & Time of Evaluation Date of Evaluation: 10/29/16 Time of Evaluation: 15:15 Objective - Vital Signs/Intake and Output Vital Signs (last 24 hours): Temp Pulse Resp BP Pulse Ox 98.4 F 83 20 99/63 L 100 10/29/16 20:41 10/29/16 20:41 10/29/16 20:41 10/29/16 20:41 10/29/16 20:41 - Medications Medications: Current Medications Acetaminophen (Tylenol 325mg Tab) 650 mg PO Q4H PRN PRN Reason: for pain scale 5-10 Last Admin: 10/29/16 21:40 Dose: 650 mg Acetaminophen (Tylenol 325mg Tab) 650 mg PO Q4 PRN PRN Reason: Headache Acetazolamide (Diamox 250 Mg Tab) 250 mg PO DAILY [facility] Last Admin: 10/29/16 08:45 Dose: 250 mg Artificial Tears (Artificial Tears) 1 drop OU Q6 PRN PRN Reason: Dry eyes Aspirin (Aspirin Chewable) 81 mg PO DAILY [facility] Atorvastatin Calcium (Lipitor) 40 mg PO HS [facility] Last Admin: 10/29/16 21:38 Dose: 40 mg Folic Acid (Folic Acid) 1 mg PO DAILY [facility] Dexamethasone 10 mg/ Sodium (Chloride) 51 mls @ 102 mls/hr IVPB DAILY PRN PRN Reason: headache severity over 09/25 Stop: 10/30/16 13:00 Lactulose (Enulose) 10 gm PO DAILY PRN PRN Reason: Constipation Magnesium Oxide (Mag-Ox) 400 mg PO BID [facility] Last Admin: 10/29/16 17:21 Dose: 400 mg Sennosides (Senokot Tab) 8.6 mg PO DAILY [facility] Thiamine HCl (Vitamin B1 Tab) 100 mg PO DAILY [facility] - Labs Labs: 10/16/16 06:00 10/16/16 06:00 PT 12.0 Seconds (9.8-13.1) 10/16/16 06:00 INR 1.0 (0.9-1.2) 10/16/16 06:00 APTT 27.9 Seconds (25.6-37.1) 10/16/16 06:00 Assessment and Plan (1) Brain mass Status: Chronic
[2016-10-30 08:04] VITALS: BP 100/61; PULSE 76; RESP 18; TEMP 97.9
[2016-10-30] MEDS: Magnesium Oxide 400 mg Tab UD PO SCH (08:22)
--- NOTE | 2016-10-31 01:09 | CP.PCM.DIS ---
Provider - Provider Date of Admission: 10/14/16 12:05 Attending physician: Alyssa Hernandez MD Time Spent in preparation of Discharge (in minutes): 25 Diagnosis - Discharge Diagnosis (1) Brain mass Status: Chronic Hospital Course - Lab Results Lab Results: Most Recent Lab Values WBC 6.4 K/uL (4.8-10.8) 10/16/16 06:00 RBC 3.59 Mil/uL (3.80-5.20) L 10/16/16 06:00 Hgb 10.7 g/dL (12.0-16.0) L 10/16/16 06:00 Hct 32.9 % (34.0-47.0) L 10/16/16 06:00 MCV 91.4 fl (81.0-99.0) 10/16/16 06:00 MCH 29.9 pg (27.0-31.0) 10/16/16 06:00 MCHC 32.7 g/dL (33.0-37.0) L 10/16/16 06:00 RDW 13.9 % (11.5-14.5) 10/16/16 06:00 Plt Count 303 K/uL (130-400) 10/16/16 06:00 MPV 7.8 fl (7.2-11.7) 10/16/16 06:00 Neut % (Auto) 59.3 % (50.0-75.0) 10/16/16 06:00 Lymph % (Auto) 32.2 % (20.0-40.0) 10/16/16 06:00 Faulkner % (Auto) 6.5 % (0.0-10.0) 10/16/16 06:00 Eos % (Auto) 1.6 % (0.0-4.0) 10/16/16 06:00 Baso % (Auto) 0.4 % (0.0-2.0) 10/16/16 06:00 Neut # 3.8 K/uL (1.8-7.0) 10/16/16 06:00 Lymph # 2.1 K/uL (1.0-4.3) 10/16/16 06:00 Fa[place]ner # 0.4 K/uL (0.0-0.8) 10/16/16 06:00 Eos # 0.1 K/uL (0.0-0.7) 10/16/16 06:00 Baso # 0.0 K/uL (0.0-0.2) 10/16/16 06:00 PT 12.0 Seconds (9.8-13.1) 10/16/16 06:00 INR 1.0 (0.9-1.2) 10/16/16 06:00 APTT 27.9 Seconds (25.6-37.1) 10/16/16 06:00 Sodium 137 mmol/l (132-148) 10/16/16 06:00 Potassium 4.8 MMOL/L (3.6-5.0) 10/16/16 06:00 Chloride 105 mmol/L (98-107) 10/16/16 06:00 Carbon Dioxide 25 mmol/L (22-30) 10/16/16 06:00 Anion Gap 13 (10-20) 10/16/16 06:00 BUN 14 mg/dl (7-17) 10/16/16 06:00 Creatinine 0.7 mg/dL (0.7-1.2) 10/16/16 06:00 Est GFR ( Amer) > 60 10/16/16 06:00 Est GFR (Non-Af Amer) > 60 10/16/16 06:00 Random Glucose 99 mg/dL (65-105) 10/16/16 06:00 Calcium 9.6 mg/dL (8.4-10.2) 10/16/16 06:00 Total Bilirubin 0.3 mg/dl (0.2-1.3) 10/16/16 06:00 AST 30 U/L (14-36) 10/16/16 06:00 ALT 36 U/L (9-52) 10/16/16 06:00 Alkaline Phosphatase 45 U/L (38-126) 10/16/16 06:00 Total Protein 7.0 G/DL (6.3-8.2) 10/16/16 06:00 Albumin 3.5 g/dL (3.5-5.0) 10/16/16 06:00 Globulin 3.5 gm/dL (2.2-3.9) 10/16/16 06:00 Albumin/Globulin Ratio 1.0 (1.0-2.1) 10/16/16 06:00 Discharge Exam - Head Exam Head Exam: ATRAUMATIC, NORMAL INSPECTION, NORMOCEPHALIC Discharge Plan - Follow Up Plan Condition: GOOD Disposition: HOME/ ROUTINE Instructions: Acetazolamide (By mouth), Thiamine (Vitamin B-1) (By mouth), Folic Acid (By mouth), Atorvastatin (By mouth), Magnesium Oxide (By mouth), Hydrocephalus (DC), Fall Prevention (DC), Stroke (GEN)
== END 2016-10-30 11:45 | disposition home health service (06) | DRG 34 ==
PROVIDERS: ADMIT Internal Medicine; ATTEND Internal Medicine
PROC: F07Z9FZ Gait Training/Functional Ambulation Treatment using Assistive, Adaptive, Supportive or Protective Equipment (ICD-10-PCS; principal; 2016-10-14)
PROC: F08Z4FZ Home Management Treatment using Assistive, Adaptive, Supportive or Protective Equipment (ICD-10-PCS; 2016-10-14)
PROC: F07M6FZ Therapeutic Exercise Treatment of Musculoskeletal System - Whole Body using Assistive, Adaptive, Supportive or Protective Equipment (ICD-10-PCS; 2016-10-15)
DX: H47.10 Unspecified papilledema (principal); G91.1 Obstructive hydrocephalus; G93.5 Compression of brain; I69.354 Hemiplegia and hemiparesis following cerebral infarction affecting left non-dominant side; F43.22 Adjustment disorder with anxiety; R26.89 Other abnormalities of gait and mobility; F17.200 Nicotine dependence, unspecified, uncomplicated